=== PATIENT | male | born 1935 | race Caucasian/White ===

== ENCOUNTER → 2016-09-09 | Outpatient (CLI) | payer MEDICARE ==
[2016-09-09 11:14] LABS: ALT 45 U/L (21-72); AST 39 U/L (17-59); Alkaline Phosphatase 68 U/L (38-126); Anion Gap 11 mmol/L; Blood Urea Nitrogen 22 mg/dL (9-20); Calcium 9.8 mg/dL (8.4-10.2); Carbon Dioxide 29 mmol/L (22-30); Chloride 104 mmol/L (98-107); Cholesterol 152 mg/dL (<200); Glucose 115 mg/dL (74-99); HDL Cholesterol 40 mg/dL (40-60); Non-African American GFR(MDRD) >60 (>60 ml/min/1.73 sqM); Potassium 3.8 mmol/L (3.5-5.1); Sodium 144 mmol/L (137-145); Total Protein 6.9 g/dL (6.3-8.2); Triglycerides 123 mg/dL (<150)
[2016-09-09 11:29] LABS: Basophils % (A) 1 %; CH 33.1; CHCM 35.6; Eosinophils # (A) 0.3 k/uL (0-0.7); Eosinophils % (A) 4 %; HDW 3.19; HGB 16.6 gm/dL (13.0-17.5); Luc # (Auto) 0.26; Luc % (Auto) 4; Lymphocytes # (A) 1.9 k/uL (1.0-4.8); Lymphocytes % (A) 29 %; MCH 32.3 pg (25.0-35.0); MCHC 34.6 g/dL (31.0-37.0); MCV 93.4 fL (80.0-100.0); Mean Platelet Volume 7.1; Monocytes # (A) 0.4 k/uL (0-1.0); Monocytes % (A) 6 %; Neutrophils # (A) 3.6 k/uL (1.3-7.7); Neutrophils % (A) 56 %; RBC 5.14 m/uL (4.30-5.90); RDW 14.8 % (11.5-15.5); WBC 6.5 k/uL (3.8-10.6); WBC (Perox) 6.52
[2016-09-09 11:43] LABS: Prostate Specific Antigen <0.06 ng/mL (0.00-4.00)
== END ==
LOC: LABWHC1 10:34
PROVIDERS: ATTEND Internal Medicine
DX: C61 Malignant neoplasm of prostate (principal); E78.5 Hyperlipidemia, unspecified; I10 Essential (primary) hypertension
CPT/HCPCS: 36415; 80053; 80061; 84153; 84439; 84443; 85025

== ENCOUNTER → 2017-02-24 | Outpatient (CLI) | payer MEDICARE ==
[2017-02-24 13:06] LABS: Basophils # (A) 0.1 k/uL (0-0.2); Basophils % (A) 1 %; CH 33.2; CHCM 35.5; Eosinophils # (A) 0.4 k/uL (0-0.7); Eosinophils % (A) 4 %; HDW 2.98; HGB 16.9 gm/dL (13.0-17.5); Luc # (Auto) 0.32; Luc % (Auto) 3; Lymphocytes % (A) 19 %; MCHC 35.1 g/dL (31.0-37.0); MCV 93.8 fL (80.0-100.0); Mean Platelet Volume 7.5; Monocytes # (A) 0.8 k/uL (0-1.0); Monocytes % (A) 8 %; Neutrophils % (A) 66 %; RBC 5.12 m/uL (4.30-5.90); WBC 10.6 k/uL (3.8-10.6); WBC (Perox) 11.02
[2017-02-24 13:29] LABS: Anion Gap 11 mmol/L; Blood Urea Nitrogen 19 mg/dL (9-20); Calcium 9.7 mg/dL (8.4-10.2); Carbon Dioxide 32 mmol/L (22-30); Chloride 96 mmol/L (98-107); Glucose 91 mg/dL (74-99); Non-African American GFR(MDRD) 58 (>60 ml/min/1.73 sqM); Potassium 3.4 mmol/L (3.5-5.1); Sodium 139 mmol/L (137-145)
== END | disposition home or self-care (01) ==
LOC: LABWHC1 12:26
PROVIDERS: ATTEND Internal Medicine
DX: N19 Unspecified kidney failure (principal)
CPT/HCPCS: 36415; 80048; 85025

== ENCOUNTER 2017-06-20 10:59 | Day surgery (SDC) | payer MEDICARE ==
[2017-06-19 10:04] VITALS: BMI 28.8
[~2017-06-20 10:59] MED LIST: ALBUTEROL NEB (CONC) 2.5 MG/0.5 ML INHALATION ONE; LACTATED RINGERS 1,000 ML IV ONE; LACTATED RINGERS 1,000 ML IV SCH; LIDOCAINE 1% 20 ML VIAL (10MG/ML) FOR IV START INTRADERMA PRN; LIDOCAINE 2% (PF) 20 MG/ML 2 ML AMP INHALATION ONE; Pre Op ABX Message 1 EACH MISC MISCELLANE ONE
[2017-06-20 11:29] VITALS: RESP 16; TEMP 97.4
[2017-06-20] MEDS ORDERED: PROPOFOL 10 MG/ML 20 ML VIAL IV ONE (12:06)
[2017-06-20] MEDS ORDERED: KETAMINE 10 MG/ML 20 ML VIAL ONE (12:06)
[2017-06-20] MEDS ORDERED: GLYCOPYRROLATE 0.2 MG/ML 2 ML VIAL ONE (12:06)
[2017-06-20] MEDS ORDERED: LIDOCAINE 2% INJ 20 MG/ML INTRATRACH ONE (12:21)
[2017-06-20 13:42] VITALS: BP 115/82; PULSE 65
--- NOTE | 2017-06-20 13:56 | PCN ---
PROCEDURE NOTE OPERATIVE REPORT: Bronchoscopy, brushings and endobronchial biopsies of the tumor at the anterior wall of the right upper lobe bronchus. PREOPERATIVE DIAGNOSIS: Chronic cough. 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 ANESTHESIA: IV conscious sedation. DESCRIPTION OF PROCEDURE: The patient was prepared according to the bronchoscopy protocol. O2 was applied via Ventimask. The patient was monitored with a pulse oximetry, cardiac rhythm was also monitored continuously, blood pressure was intermittently monitored. After adequate IV conscious sedation, a few mL of lidocaine were instilled into the right naris, and the bronchoscope was advanced through the right naris down to the area of the vocal cords, which were noted to be patent. Significant purulent secretions were noted around the area of the vocal cords. The drainage from the sinuses. Then lidocaine was applied over the vocal cords, the bronchoscope was advanced further down to the trachea. Thorough examination was done of the trachea, emiliano, right upper lobe, right middle lobe, right lower lobe, left upper lobe lingula and left lower lobe. There was evidence of significant bronchial erythema and swelling noted. However, as I entered the right upper lobe bronchus, there was clearly a vesicular tumor measuring about 1.0 cm in size at the anterior wall of the right upper lobe bronchus. Multiple biopsies, brushings, washings were done from that area specifically, and after by the end of the procedure, the whole tumor seems to have evaporated almost with some vesicular lesions noted on the anterior wall of the right upper lobe bronchus. Biopsies were sent for different studies. Pictures before the biopsies were done and pictures after the biopsies were done to document the lesion and document resolution of the lesion after the biopsies were done. The procedure was well tolerated, no evidence of any immediate complications. BLOOD LOSS: Was negligible. MMODL / IJN: [id number] /
[2017-06-20 17:22] LABS: Appearance,BF Bloody; Color,BF Red; Nucleated Cells, Body Fluid 650 /uL; RBC, Body Fluid 160000 /uL
[2017-06-20 17:29] LABS: Mononuclear WBC,Body Fluid 35 %; Polynuclear WBC,Body Fluid 63 %; Total Cells Counted,Body Fluid 100
== END 2017-06-20 14:19 | disposition home or self-care (01) ==
LOC: ORWHC2ENDO 10:59
PROVIDERS: ATTEND Internal Medicine
DX: J98.4 Other disorders of lung (principal); R05 Cough; C90.00 Multiple myeloma not having achieved remission; I34.1 Nonrheumatic mitral (valve) prolapse; R00.2 Palpitations; M10.9 Gout, unspecified; Z85.46 Personal history of malignant neoplasm of prostate; Z79.82 Long term (current) use of aspirin; Z79.899 Other long term (current) drug therapy; Z88.5 Allergy status to narcotic agent
CPT/HCPCS: 94640; 87798 ×3; 87496; 87498; 87529; 88104; 88108; 88305; 89050; 87252; 87502; 87634; 87070; 87205; 87116; 87102; 87206; 31625; 31623; J2001 ×2; J2704; 31624; 31645

== ENCOUNTER 2017-07-12 12:05 | Day surgery (SDC) | payer MEDICARE ==
[2017-07-11 09:00] VITALS: BMI 29.2
[~2017-07-12 12:05] MED LIST changes: +DEXAMETHASONE SOD PHOSPHATE 10 MG/ML 1 ML VIAL IV ONE; +HYDROmorphone 0.5 MG/0.5 ML SYRINGE IVP PRN; -LIDOCAINE 1% 20 ML VIAL (10MG/ML) FOR IV START INTRADERMA PRN; +ONDANSETRON 4 MG/2 ML VIAL IVP ONE; -Pre Op ABX Message 1 EACH MISC MISCELLANE ONE
[2017-07-12 12:40] VITALS: TEMP 97
[2017-07-12 12:41] LABS: Glucose,Whole Blood 99 mg/dL (75-99)
[2017-07-12] MEDS ORDERED: LIDOCAINE 1% 20 ML VIAL (10MG/ML) FOR IV START INTRADERMA ONE (12:44)
[2017-07-12] MEDS ORDERED: PROPOFOL 10 MG/ML 20 ML VIAL IV ONE (13:10)
[2017-07-12] MEDS ORDERED: MIDAZOLAM 2 MG/2 ML VIAL ONE (13:10)
[2017-07-12] MEDS ORDERED: LIDOCAINE 1% INJ 10MG/ML (20 ML MDV) ONE (13:10)
[2017-07-12] MEDS ORDERED: LIDOCAINE 2% INJ 20 MG/ML INTRATRACH ONE (13:18)
[2017-07-12 14:06] VITALS: BP 106/77; PULSE 65; RESP 20
--- NOTE | 2017-07-12 14:12 | OP ---
OPERATIVE REPORT PROCEDURE: Bronchoscopy and brushings of a right upper lobe. A cystic tumor in the right upper lobe bronchus. PREOPERATIVE DIAGNOSIS: History of a cystic tumor involving the right upper lobe bronchus seen on previous bronchoscopy. POSTOPERATIVE DIAGNOSIS: Residual mucosal findings noted from a previous cystic tumor in the right upper lobe bronchus, the tumor has resolved. ANESTHESIA: IV conscious sedation. Please refer to [employer] documentation. PROCEDURE DESCRIPTION: Patient was placed in a supine position, he was already prepared as PER bronchoscopy protocol. O2 was applied via nasal cannula, and we monitored his O2 saturation continuously with pulse oximetry. Blood pressure was intermittently monitored, and cardiac rhythm was also monitored continuously. After adequate IV conscious sedation, a few mL of lidocaine were instilled into the left naris, and the bronchoscope was advanced through the left nares, down to the area of the vocal cords. Vocal cords were patent. Lidocaine was applied over the vocal cords, and the bronchoscope was advanced further down to the trachea. A thorough examination was done of the trachea, emiliano, right upper lobe, right middle lobe, right lower lobe, left upper lobe, lingula, and left lower lobe. Specific attention was given to the area of the right upper lobe bronchus where there was a history of a cystic lesion previously and the previous biopsies were nondiagnostic showing mostly atypical cells and metaplasia. The area in question was evaluated again today, and I did brushings of the area itself, there is hardly any residual tumor noted in the area, specifically, there was some mucosal changes consistent with inflammatory changes, but no evidence of tumor specifically in that location. Again two brushes were done from that specific area, and this is the anterior aspect of the right upper lobe bronchus at takeoff. Procedure was well tolerated, no evidence of any immediate complications, and no bleeding was noted. MMODL / IJN: [id number] /
== END 2017-07-12 14:26 | disposition home or self-care (01) ==
LOC: ORWHC2ENDO 12:05
PROVIDERS: ATTEND Internal Medicine
DX: R84.6 Abnormal cytological findings in specimens from respiratory organs and thorax (principal); R05 Cough; I10 Essential (primary) hypertension; J30.2 Other seasonal allergic rhinitis; K21.9 Gastro-esophageal reflux disease without esophagitis; M10.9 Gout, unspecified; C90.00 Multiple myeloma not having achieved remission; I25.10 Atherosclerotic heart disease of native coronary artery without angina pectoris; Z85.46 Personal history of malignant neoplasm of prostate; Z79.82 Long term (current) use of aspirin; Z79.899 Other long term (current) drug therapy; Z88.5 Allergy status to narcotic agent
CPT/HCPCS: 31623; 94640; 88104; 88305; J2001 ×3; J2250; J2704

== ENCOUNTER → 2017-08-15 | Outpatient (CLI) | payer MEDICARE ==
--- NOTE | 2017-08-15 14:44 | CT ---
EXAMINATION TYPE: CT chest wo con DATE OF EXAM: 08/15/2017 COMPARISON: Chest x-ray 06/30/2017, CT chest 08/30/2013 HISTORY: Cough CT DLP: 952.6 mGycm. Automated Exposure Control for Dose Reduction was Utilized. TECHNIQUE: CT scan of the thorax is performed without IV contrast. Limited scanning performed throug h the chest in supine and prone positions without contrast with high-resolution algorithm FINDINGS: LUNGS: The lungs are remarkable for some minimal subpleural lines, some probable scarring present in the left lower lobe, there is no concerning parenchymal mass or nodule identified. There is no pleu ral effusion or pneumothorax seen. The tracheobronchial tree is patent. MEDIASTINUM: Lack of IV contrast is noted to limit evaluation for mediastinal and especially hilar ad enopathy. There are no definitive greater than 1 cm hilar or mediastinal lymph nodes. There are coron maria luisa artery calcifications present. No cardiomegaly or pericardial effusion is seen. Proximal ascend ing portion of the aorta measures approximately 4.4 cm. OTHER: Multiple punched-out bone lesions are present throughout the visualized skeleton. Dense lines in the upper abdomen may be due to vascular calcifications. IMPRESSION: Correlate for multiple myeloma, metastatic disease. Coronary artery disease. Ascending ao rtic aneurysm.
== END | disposition home or self-care (01) ==
LOC: RADCTMAIN 13:28
PROVIDERS: ATTEND Internal Medicine
DX: I25.10 Atherosclerotic heart disease of native coronary artery without angina pectoris (principal); I71.2 Thoracic aortic aneurysm, without rupture; Z88.5 Allergy status to narcotic agent
CPT/HCPCS: 71250

== ENCOUNTER → 2018-02-14 | Outpatient (CLI) | payer MEDICARE ==
[2018-02-14 11:15] LABS: Basophils # (A) 0.1 k/uL (0-0.2); Basophils % (A) 1 %; Eosinophils # (A) 0.3 k/uL (0-0.7); Eosinophils % (A) 5 %; HCT 47.8 % (39.0-53.0); HGB 16.3 gm/dL (13.0-17.5); Lymphocytes # (A) 1.9 k/uL (1.0-4.8); Lymphocytes % (A) 26 %; MCH 31.7 pg (25.0-35.0); MCHC 34.2 g/dL (31.0-37.0); MCV 92.9 fL (80.0-100.0); Mean Platelet Volume 7.3; Monocytes # (A) 0.5 k/uL (0-1.0); Monocytes % (A) 7 %; Neutrophils # (A) 4.3 k/uL (1.3-7.7); Neutrophils % (A) 58 %; Platelet Count 180 k/uL (150-450); RBC 5.14 m/uL (4.30-5.90); RDW 13.3 % (11.5-15.5); WBC 7.4 k/uL (3.8-10.6)
[2018-02-14 11:44] LABS: Calcium 9.4 mg/dL (8.4-10.2); Potassium 3.7 mmol/L (3.5-5.1); Total Bilirubin 1.3 mg/dL (0.2-1.3); Total Protein 6.5 g/dL (6.3-8.2)
[2018-02-14 11:55] LABS: T4, Free (Free Thyroxine) 1.02 ng/dL (0.78-2.19)
== END | disposition home or self-care (01) ==
LOC: LABWHC1 10:20
PROVIDERS: ATTEND Internal Medicine
DX: E78.5 Hyperlipidemia, unspecified (principal); I10 Essential (primary) hypertension
CPT/HCPCS: 36415; 80053; 80061; 84439; 84443; 85025

== ENCOUNTER → 2018-03-26 | Outpatient (CLI) | payer MEDICARE ==
[2018-03-26 17:45] LABS: Appearance,Urine Clear (Clear); Bilirubin,Urine Negative (Negative); Blood,Urine Negative (Negative); Color,Urine Yellow; Glucose,Urine (UA) Negative (Negative); Ketones,Urine Negative (Negative); Leukocyte Esterase,Urine Negative (Negative); Nitrite,Urine Negative (Negative); PH, Urine 6.5 (5.0-8.0); Protein,Urine Trace (Negative); Specific Gravity,Urine 1.024 (1.001-1.035); Urobilinogen,Urine <2.0 mg/dL (<2.0)
[2018-03-26 17:53] LABS: HCT 46.9 % (39.0-53.0); HGB 16.4 gm/dL (13.0-17.5); MCH 32.8 pg (25.0-35.0); MCHC 34.9 g/dL (31.0-37.0); MCV 93.8 fL (80.0-100.0); Mean Platelet Volume 7.2; Platelet Count 180 k/uL (150-450); RDW 13.5 % (11.5-15.5); WBC 6.9 k/uL (3.8-10.6)
[2018-03-26 18:00] LABS: INR 1.1 (<1.2); Partial Thromboplastin Time 22.8 sec (22.0-30.0); Prothrombin Time 10.5 sec (9.0-12.0)
[2018-03-26 18:08] LABS: Calcium 9.8 mg/dL (8.4-10.2); Potassium 3.7 mmol/L (3.5-5.1); Total Bilirubin 0.8 mg/dL (0.2-1.3); Total Protein 6.7 g/dL (6.3-8.2)
== END | disposition home or self-care (01) ==
LOC: LABPAT 17:00
PROVIDERS: ATTEND Orthopaedic Surgery
DX: Z01.812 Encounter for preprocedural laboratory examination (principal); Z79.01 Long term (current) use of anticoagulants
CPT/HCPCS: 36415; 80053; 81003; 85027; 85610; 85730; 87070

== ENCOUNTER 2018-04-17 13:13 | Inpatient (IN) | payer MEDICARE ==
[2018-04-10 12:01] VITALS: BMI 28.8
[~2018-04-17 13:13] MED LIST changes: +ACETAMINOPHEN TAB 500 MG TAB PO ONE; -ALBUTEROL NEB (CONC) 2.5 MG/0.5 ML INHALATION ONE; -DEXAMETHASONE SOD PHOSPHATE 10 MG/ML 1 ML VIAL IV ONE; -HYDROmorphone 0.5 MG/0.5 ML SYRINGE IVP PRN; -LACTATED RINGERS 1,000 ML IV ONE; -LACTATED RINGERS 1,000 ML IV SCH; +LIDOCAINE 1% 20 ML VIAL (10MG/ML) FOR IV START INTRADERMA PRN; -LIDOCAINE 2% (PF) 20 MG/ML 2 ML AMP INHALATION ONE; +MELOXICAM 7.5 MG TAB PO ONE; +MIDAZOLAM 2 MG/2 ML VIAL IV PRN; -ONDANSETRON 4 MG/2 ML VIAL IVP ONE; +ROPIVACAINE 246.25 MG, EPINEPHrine 0.5 MG, KETOROLAC 30 MG, cloNIDine HCL/PF 80 MCG, WA... MISCELLANE ONE; +TRANEXAMIC ACID 1,000 MG in SODIUM CHLORIDE 0.9% 50 ML IVPB ONE; +ceFAZolin IN SWFI 2 GM/20 ML SYRINGE IVP ONE; +fentaNYL (PF) 50 MCG/ML 2 ML AMP IV PRN
[2018-04-17] MEDS: LACTATED RINGERS 1,000 ML IV SCH ×2 (13:39→19:49)
[2018-04-17] MEDS ORDERED: ONDANSETRON 4 MG/2 ML VIAL IVP ONE (13:53)
--- NOTE | 2018-04-17 14:28 | P.ONQ ---
Anesthesiology Proc Note - PNB - Peripheral Nerve Block Performed Right Adductor Canal Infusion Time Out Performed: Yes Procedure Start Time: 14:20 Procedure Stop Time: 14:30 Indication: Acute Post-Operative Pain, Analgesia, Requested by physician Sedation Type: Sedate with meaningful contact maintained Preparation: Sterile Dressing Position: Supine Catheter: Indwelling Needle Types: On-Q Needle Size: 100mm (4") Needle Gauge: 20 Technique: Ultrasound Injectate: 0.5% Ropivacaine (see comment for volume) Narrative: Image copied to patient's chart Blood Aspirated: No Pain Paresthesia on Injection Noted: No Resistance on Injection: Normal Events: Uneventful and Well Tolerated (Ropivacaine 0.5% 20 ml injected into adductor canal with adequate spread)
[2018-04-17] MEDS ORDERED: DIAZEPAM 5 MG TAB PO PRN (16:48)
[2018-04-17] MEDS ORDERED: NALOXONE 0.4 MG/ML 1 ML VIAL IV PRN (16:48)
[2018-04-17] MEDS ORDERED: BISACODYL 10 MG SUPP RECTAL PRN (16:48)
[2018-04-17] MEDS ORDERED: MAGNESIUM HYDROXIDE 2,400 MG/10 ML CUP PO PRN (16:48)
[2018-04-17] MEDS ORDERED: HYDROmorphone 1 MG/ML 1 ML SYRINGE IVP PRN ×3 (16:48)
[2018-04-17] MEDS ORDERED: HYDROcodone/APAP 5-325MG 1 EACH TAB PO PRN ×2 (16:48)
[2018-04-17] MEDS ORDERED: hydrOXYzine PAMOATE 25 MG CAP PO PRN (16:48)
[2018-04-17] MEDS ORDERED: NA PHOS,M-B/NA PHOS,DI-BA 133 ML ENEMA RECTAL PRN (16:48)
[2018-04-17] MEDS ORDERED: SODIUM CHLORIDE 0.9% 100 ML BAG ONE (17:01)
[2018-04-17] MEDS ORDERED: PROPOFOL 10 MG/ML 20 ML VIAL IV ONE (17:01)
[2018-04-17] MEDS ORDERED: fentaNYL (PF) 50 MCG/ML 2 ML AMP ONE (17:01)
[2018-04-17] MEDS ORDERED: ePHEDrine SULFATE/0.9% NACL/PF 50 MG/5 ML SYRINGE IV ONE (17:01)
[2018-04-17] MEDS ORDERED: TRANEXAMIC ACID 1,000 MG/10 ML VIAL ONE (17:01)
[2018-04-17] MEDS ORDERED: MIDAZOLAM 2 MG/2 ML VIAL ONE (17:01)
[2018-04-17] MEDS ORDERED: ceFAZolin 3,000 MG in SODIUM CHLORIDE 0.9% IRRIGATIO 3,000 ML IRRIGATION ONE (17:21)
[2018-04-17] MEDS ORDERED: LACTATED RINGERS 1,000 ML IV ONE ×2 (17:42)
--- NOTE | 2018-04-17 18:08 | P.OP ---
Date of Procedure: 04/17/18 Preoperative Diagnosis: Severe osteoarthritis right knee Postoperative Diagnosis: Severe osteoarthritis right knee Procedure(s) Performed: Right total knee arthroplasty Implants: Soliman [employer] Nephew Journey II CR Oxinium cruciate retaining femoral component size 8, right Sol[employer] Journey right nonporous tibial baseplate size 7 Soliman [employer]hew Journey II, XLPE CR articular insert, size 9 mm, Size 7-8 right Sol[employer] Journey BCS resurfacing round patellar component, 35 mm All components were cemented using [place]os R bone cement.. The articulation is Oxinium on polyethylene. Anesthesia: spinal Surgeon: Chris Morley Boom Cat Operator #1: Leora Hemphill Estimated Blood Loss (ml): 50 Pathology: other (Bone and cartilage) Condition: stable Disposition: PACU Indications for Procedure: After failure of conservative treatment we discussed the surgical and nonsurgical treatment options at length. Patient wishes to proceed with a total knee arthroplasty. Complications specific to this procedure were discussed at length, including but not limited to infection, bleeding, stiffness , and nerve injury. Patient is aware of all these complications and informed consent was obtained the operative findings are consistent with severe osteoarthritis of the right knee Operative Findings: The operative findings are consistent with severe osteoarthritis of the right knee Description of Procedure: Patient was seen in the preoperative area consent was reviewed and operative site was marked with a skin marker. An adductor canal pain catheter was placed by anesthesia in the preoperative area. Patient was then brought to the operating room and given preoperative antibiotics intravenously. A spinal anesthetic was administered by the anesthesia department. A tourniquet was placed on the upper thigh and the lower extremity was prepped and draped in usual sterile fashion. A gram of transexamic acid was given. A universal timeout was then performed which confirmed the patient's name, surgical site, ALLERGIES, and consent. The lower extremity was then exsanguinated and tourniquet was inflated to 250 mmHg. A standard and anterior midline approach to the knee was performed. The skin and subcutaneous tissue was dissected down to the patellar tendon. A medial parapatellar arthrotomy was then performed. The knee was then extended, the patellar was everted, and the knee was again flexed. Anterior horns of both menisci were excised, and a release was performed to the posterior medial aspect of the knee. On gross visual inspection, there was complete loss of articular cartilage in the medial and patellofemoral joint spaces. There was also significant cartilage damage in the lateral compartment. There were multiple periarticular osteophytes which were then removed with a Ronguer. The femoral canal was then opened with the appropriate drill, and the intramedullary femoral cutting guide was then placed and set for 5 of valgus. The distal femoral cutting block was then pinned in place, and the distal femur was then cut. The cutting block was then removed and the cut was checked for flatness. Next, the sizing guide was then placed and set for 3 external rotation based off of the epicondylar axis and Whitesides line. After the femur was sized, the appropriate 4-in-1 cutting block was then pinned in place. The anterior condyles were cut without notching. The posterior and chamfer cuts were performed while protecting the collateral ligaments. The cutting block was then removed, and the femoral canal was plugged with autologous bone. Attention was then directed to the tibia. The remaining ACL was removed with a Ronguer, and the tibia was then gently subluxed forward with a large bent knee retractor. Any remaining menisci was excised. The posterior lateral corner was cauterized in order to cauterize the lateral geniculate artery. The extra medullary tibial cutting guide was then placed, set for the appropriate rotation , slope, and depth of resection. The proximal tibia cutting guide was then pinned in place. Proximal tibia was then cut and sized. Next trials were then placed with the appropriate-sized insert. The knee was able to fully extend and flex to 130 and was stable throughout all range of motion. The knee was then extended, patella everted. Patella was then measured, and then using an osteotomy guide, the patella was cut at the appropriate level. The patella was then measured and drilled and the patella trial was then placed. The knee was then taken through range of motion with the patella trial and the patella tracked normally. The knee was then extended patella trial was then removed and the patella was everted. Knee was then flexed and lug holes were drilled through the femoral trial and the femoral trial was then removed. The tibial was then exposed, and the tibial broach guide was then pinned in place after it was set for the appropriate rotation to allow for the most coverage without overhang. The tibia was then reamed and broached. The cut surfaces of bone were then irrigated with pulsatile lavage. The posterior structures were injected with the ropivacaine solution. The knee was also irrigated with Irrisept solution. The components were then opened, the cement was mixed, and the components were then cemented in place. The cement was allowed to harden with the knee in full extension. While the cement was hardening, the remaining soft tissues were then injected with a ropivacaine solution, which consisted of 246.25 mg of ropivacaine, 0.5 mg of epinephrine, 30 mg of Toradol, 80 g of clonidine, and 48.45 mL of sterile water, for a total of 100 mL of fluid injected. After the cemented hardened. The tourniquet was released, and hemostasis was obtained. A second gram of transexamic acid was given. The knee was again irrigated. The knee was again taken through range of motion and found to be stable throughout all range of motion of 0-130 , and the patella tracked normally. The fascia was then closed with #2 strata fix suture. The subcutaneous tissue was closed with 3-0 Vicryl and 3-0 strata fix. Dermabond glue was used for the skin and placed with the knee in flexion. The patient was placed in a sterile silver dressing. Patient was then transferred to recovery room in stable condition. The household assistant DAMIEN Bassett was required due the complexity surgery and the need for a skilled surgical dressing maker. She assisted in positioning, draping, retraction, and closure of the wound.
[2018-04-17] MEDS ORDERED: ROPIVACAINE 1,100 MG, SODIUM CHLORIDE 0.9% 500 ML 330 ML MISCELLANE PRN ×2 (18:56)
--- NOTE | 2018-04-17 19:35 | XR ---
PROCEDURE: XR knee limited RT 2 views DATE AND TIME: 04/17/2018 7:10 PM CLINICAL INDICATION: PHH Evaluation for Postop abnormality and alignment TECHNIQUE: Portable AP and crosstable lateral postoperative views COMPARISON: None FINDINGS: TKR is well seated with anatomic positioning and alignment noted. There are no unexpected postoperative findings. IMPRESSION: Postoperative.
[2018-04-17] MEDS: SODIUM CHLORIDE 0.9% 1,000 ML IV SCH (19:50)
[2018-04-17] MEDS ORDERED: SENNOSIDES-DOCUSATE SODIUM 1 EACH TAB PO SCH (21:00)
[2018-04-17] MEDS ORDERED: ALLOPURINOL 300 MG TAB PO SCH (21:15)
[2018-04-17] MEDS ORDERED: ATORVASTATIN 40 MG TAB PO SCH (21:15)
[2018-04-17] MEDS ORDERED: MONTELUKAST 10 MG TAB PO SCH (21:15)
[2018-04-17] MEDS: ASPIRIN 325 MG TAB PO SCH (21:55)
[2018-04-18] MEDS: ceFAZolin IN SWFI 2 GM/20 ML SYRINGE IVP SCH ×2 (00:02→08:09)
--- NOTE | 2018-04-18 07:08 | P.PN ---
Progress Note - Text Progress Note Date: 04/18/18 The patient is status post 1 adductor canal catheter placement. The catheter was placed for postoperative pain control, status post total Right Knee arthroplasty. Ropivacaine 0.2% is infusing at 5 mLs per hour. The patient has no complaints of right lower extremity numbness or weakness. Patient's VAS score is2 -10. Assessment: Patient's adductor canal catheter is in place and working appropriately. Plan: continue infusion and adjust it as needed.
[2018-04-18] MEDS ORDERED: PANTOPRAZOLE 40 MG TABLET PO SCH (07:30)
[2018-04-18 07:41] VITALS: BP 114/68; PULSE 66; RESP 16; TEMP 98
[2018-04-18 07:46] LABS: Basophils % (A) 1 %; Eosinophils # (A) 0.2 k/uL (0-0.7); Eosinophils % (A) 3 %; HCT 40.3 % (39.0-53.0); HGB 13.7 gm/dL (13.0-17.5); Lymphocytes # (A) 1.4 k/uL (1.0-4.8); Lymphocytes % (A) 17 %; MCH 31.9 pg (25.0-35.0); MCHC 34.2 g/dL (31.0-37.0); MCV 93.5 fL (80.0-100.0); Mean Platelet Volume 7.2; Monocytes # (A) 0.5 k/uL (0-1.0); Monocytes % (A) 6 %; Neutrophils # (A) 5.6 k/uL (1.3-7.7); Neutrophils % (A) 71 %; Platelet Count 151 k/uL (150-450); RBC 4.31 m/uL (4.30-5.90); RDW 13.8 % (11.5-15.5); WBC 7.9 k/uL (3.8-10.6)
[2018-04-18] MEDS: ASPIRIN 325 MG TAB PO SCH (08:09)
[2018-04-18] MEDS ORDERED: MELOXICAM 7.5 MG TAB PO SCH (09:00)
[2018-04-18] MEDS ORDERED: ATENOLOL 50 MG TAB PO SCH (09:00)
[2018-04-18] MEDS ORDERED: CHLORTHALIDONE 25 MG TAB PO SCH (09:00)
[2018-04-18] MEDS: SODIUM CHLORIDE 0.9% 1,000 ML IV SCH (09:13)
--- NOTE | 2018-04-18 09:23 | P.DS ---
Providers Date of admission: 04/17/18 13:13 Expected date of discharge: 04/18/18 Attending physician: Chris Morley Consults: 04/17/18 16:48 Consult Physician Routine Consulting Provider: Mari Tarango Consult Reason/Comments: medical management Do you want consulting provider notified?: Yes Primary care physician: Mari Traango - Discharge Diagnosis(es) (1) Primary osteoarthritis of right knee Current Visit: Yes Status: Acute (2) S/P total knee arthroplasty Current Visit: Yes Status: Acute Hospital Course: This is a 82-year-old male with known history of degenerative arthritis of the right knee. The patient presents for evaluation. After discussion and consideration patient elects to proceed with total knee arthroplasty. The patient is seen preoperatively by Dr. Morley and medically cleared for surgery by their primary care physician. Patient is admitted to [facility] on 04/17/2018 for total knee arthroplasty. The procedures performed without complication or sequelae. The patient is doing well postoperatively. Labs and vital signs are stable on day of discharge. On day of discharge patient's knee incision is healing well. There is minimal erythema. There is no drainage noted at this time. There is minimal soft tissue swelling to the knee. Patient has full foot and ankle motion without difficulty or pain. Neurovascular status to the right lower extremity is intact. Patient is discharged home in good condition. Please see med rec for accurate list of home medications. Plan - Discharge Summary Discharge Rx Participant: Yes New Discharge Prescriptions: New Aspirin 325 mg PO BID #60 tab HYDROcodone/APAP 5-325MG [Mass[place] 5-325] 1 - 2 tab PO Q4-6H PRN #84 tab PRN Reason: Pain Sennosides [Senokot] 1 tab PO BID #60 tablet No Action [place] Oil/Orange-3 Fatty Acids [Fish Oil 500 mg Softgel] 1 cap PO HS Pantoprazole Sodium [Protonix] 40 mg PO QAM Cetirizine HCl [Zyrtec] 10 mg PO QAM PRN PRN Reason: Allergy Symptoms Aspirin 162 tab PO HS Multivitamin [Men's Multi-Vitamin] 1 tab PO HS Atenolol/Chlorthalidone [Atenolol-Chlorthalidone 50-25] 1 tab PO DAILY Allopurinol [Zyloprim] 300 mg PO HS Acetaminophen [Tylenol Extra Strength] 500 - 1,000 mg PO Q6H PRN PRN Reason: Pain Atorvastatin [Lipitor] 40 mg PO HS Acetaminophen [Tylenol Arthritis] 1,300 mg PO Q8H PRN PRN Reason: Pain Montelukast Sodium [Singulair] 10 mg PO HS Discharge Medication List Aspirin 162 tab PO HS 10/10/13 [History] Cetirizine HCl [Zyrtec] 10 mg PO QAM PRN 10/10/13 [History] Multivitamin [Men's Multi-Vitamin] 1 tab PO HS 10/10/13 [History] Pantoprazole Sodium [Protonix] 40 mg PO QAM 10/10/13 [History] [place] Oil/Orange-3 Fatty Acids [Fish Oil 500 mg Softgel] 1 cap PO HS 10/10/13 [ History] Atenolol/Chlorthalidone [Atenolol-Chlorthalidone 50-25] 1 tab PO DAILY 12/29/14 [History] Allopurinol [Zyloprim] 300 mg PO HS 06/19/17 [History] Acetaminophen [Tylenol Arthritis] 1,300 mg PO Q8H PRN 04/10/18 [History] Acetaminophen [Tylenol Extra Strength] 500 - 1,000 mg PO Q6H PRN 04/10/18 [ History] Atorvastatin [Lipitor] 40 mg PO HS 04/10/18 [History] Montelukast Sodium [Singulair] 10 mg PO HS 04/10/18 [History] Aspirin 325 mg PO BID #60 tab 04/18/18 [Rx] HYDROcodone/APAP 5-325MG [[place] 5-325] 1 - 2 tab PO Q4-6H PRN #84 tab 04/18/18 [ Rx] Sennosides [Senokot] 1 tab PO BID #60 tablet 04/18/18 [Rx] Follow up Appointment(s)/Referral(s): Chris Morley DO [Doctor of Osteopathic Medicine] - 2 Weeks Ambulatory/Diagnostic Orders: Continuous Passive Motion (CPM) Machine [DME.AMB1] Time Frame: 3 Weeks, Location : None Selected Activity/Diet/Wound Care/Special Instructions: Weightbearing as tolerated with a walker. CPM 5-6h daily. Leave dressing intact. May be removed by home care nurse in 10 days. May shower with dressing on. Please call [facility] with any questions or concerns, . Discharge Disposition: HOME WITH HOME HEALTH SERVICES
--- NOTE | 2018-04-18 13:15 | P.CNPUL ---
History of Present Illness Consult date: 04/18/18 Requesting physician: Chris Morley Reason for consult: other Chief complaint: Severe osteoarthritis of the right knee status post right total knee arthro History of present illness: This is a 82-year-old white male patient of Dr. Tarango, who presented on 2017 for an elective right total knee arthroplasty for severe osteoarthritis of the right knee. Tolerated procedure well, this morning he was up ambulating, he states his pain is under good control, denies any specific complaints, no shortness of breath or chest pain. Patient has a past medical history is significant for hypertension, prostate cancer, cataracts, monoclonal gammopathy. She is a lifetime nonsmoker, he does not consume alcohol. Today's blood work has been reviewed, WBC 7.9, hemoglobin is 13.7, platelet count is 151. No chemistry was done. Vital signs are stable, room air pulse ox is 93%, patient is afebrile, hemodynamics stable. Patient's pain is being managed by oral [place] as, and Dilaudid for breakthrough pain. Pain is under control. He is doing well, and anticipated to be discharged home today. Review of Systems All systems: negative Constitutional: Denies chills, Denies fever Eyes: denies blurred vision, denies pain Ears, nose, mouth and throat: Denies headache, Denies sore throat Cardiovascular: Denies chest pain, Denies shortness of breath Respiratory: Denies cough Gastrointestinal: Denies abdominal pain, Denies diarrhea, Denies nausea, Denies vomiting Musculoskeletal: Denies myalgias Musculoskeletal: right: knee pain Integumentary: Denies pruritus, Denies rash Neurological: Denies numbness, Denies weakness Psychiatric: Denies anxiety, Denies depression Endocrine: Denies fatigue, Denies weight change Past Medical History Past Medical History: Asthma, Blood Disorder, Cancer, GERD/Reflux, Hypertension , Mitral Valve Prolapse (MVP), Osteoarthritis (OA), Renal Disease Additional Past Medical History / Comment(s): MINOR MVP. THORACIC AORTIC ANEURYSM. ALLERGIC ASTHMA. GOUT. HX PROSTATE CANCER. HX PALPITATIONS 1997. BLOOD DISORDER - MONOCLONAL GAMMOPATHY, OR ABN PROTEIN IN BLOOD, MULTIPLE MYELOMA INACTIVE. KIDNEY DISEASE STAGE 2. History of Any Multi-Drug Resistant Organisms: None Reported Past Surgical History: Heart Catheterization, Hernia Repair, Orthopedic Surgery , Prostate Surgery Additional Past Surgical History / Comment(s): BENIGN TUMORS EXC ANKLE. PRE-CA LESION REMOVED. PARTIAL AMPUTATION OF 3RD TOE RT FOOT. CATARACTS MANJEET. GANGLION CYST EXC LT KNEE. LT ING & UMB HERNIA. DENTAL IMPLANTS (1)TOP, (2) BOTTOM. ROBOTIC PROSTATECTOMY 2009@ [facility] HOSP. COLONOSCOPY. BRONCHOSCOPY 06/2017. CIRCUMCISION 2017. Past Anesthesia/Blood Transfusion Reactions: No Reported Reaction, Family History of Problems w/ Anesthesia Additional Past Anesthesia/Blood Transfusion Reaction / Comment(s): NAUSEA Past Psychological History: No Psychological Hx Reported Smoking Status: Never smoker Past Alcohol Use History: Rare Past Drug Use History: None Reported - Past Family History Mother Family Medical History: Cancer Brother(s) Family Medical History: Cancer Additional Family Medical History / Comment(s): PROSTATE Sister(s) Family Medical History: Cancer Additional Family Medical History / Comment(s): 1 W/ LUNG CA, 1 W/ THROAT CA Medications and Allergies Home Medications Medication Instructions Recorded Confirmed Type Aspirin 162 tab PO HS 10/10/13 04/17/18 History Cetirizine HCl [Zyrtec] 10 mg PO QAM PRN 10/10/13 04/17/18 History Multivitamin [Men's Multi-Vitamin] 1 tab PO HS 10/10/13 04/17/18 History Pantoprazole Sodium [Protonix] 40 mg PO QAM 10/10/13 04/17/18 History [place] Oil/[place]-3 Fatty Acids 1 cap PO HS 10/10/13 04/17/18 History [Fish Oil 500 mg Softgel] Atenolol/Chlorthalidone 1 tab PO DAILY 12/29/14 04/17/18 History [Atenolol-Chlorthalidone 50-25] Allopurinol [Zyloprim] 300 mg PO HS 06/19/17 04/17/18 History Acetaminophen [Tylenol Arthritis] 1,300 mg PO Q8H PRN 04/10/18 04/17/18 History Acetaminophen [Tylenol Extra 500 - 1,000 mg PO Q6H PRN 04/10/18 04/17/18 History Strength] Atorvastatin [Lipitor] 40 mg PO HS 04/10/18 04/17/18 History Montelukast Sodium [Singulair] 10 mg PO HS 04/10/18 04/17/18 History Aspirin 325 mg PO BID #60 tab 04/18/18 Rx HYDROcodone/APAP 5-325MG [[place] 1 - 2 tab PO Q4-6H PRN #84 tab 04/18/18 Rx 5-325] Sennosides [Senokot] 1 tab PO BID #60 tablet 04/18/18 Rx Allergies Allergy/AdvReac Type Severity Reaction Status Date / Time meperidine HCl [From Demerol] Allergy SEVERE Verified 04/17/18 16:54 SWEATING, LOW BLOOD PRESSURE Physical Exam Vitals: Vital Signs Temp Pulse Pulse Resp BP Pulse Ox 04/18/18 07:00 98 F 66 16 114/68 93 L 04/18/18 00:01 17 04/17/18 23:00 97.4 F L 57 L 17 108/71 92 L 04/17/18 22:47 16 04/17/18 21:48 97.3 F L 61 113/75 90 L 04/17/18 19:30 67 16 108/62 100 04/17/18 19:15 62 16 109/61 100 04/17/18 19:00 54 L 16 100/65 95 04/17/18 18:40 97.1 F L 61 16 108/61 95 04/17/18 13:33 97.2 F L 65 16 163/91 96 Intake and Output 04/17/18 04/18/18 04/18/18 22:59 06:59 14:59 Intake Total 1381 Output Total 50 Balance 1331 Intake: IV 701 Intake, IV Titration 140 Amount Sodium Chloride 0.9% 1, 140 000 ml @ 70 mls/hr IV . [id number] [facility] Rx#:[id number] Oral 540 Output: Estimated Blood Loss 50 Other: Voiding Method Urinal Urinal # Voids 1 GENERAL EXAM: Alert, pleasant, 82-year-old white male comfortable in no apparent distress. HEAD: Normocephalic/atraumatic. EYES: Normal reaction of pupils, equal size. Conjunctiva pink, sclera white. NOSE: Clear with pink turbinates. THROAT: No erythema or exudates. NECK: No masses, no JVD, no thyroid enlargement, no adenopathy. CHEST: No chest wall deformity. Symmetrical expansion. LUNGS: Equal air entry with no crackles, wheeze, rhonchi or dullness. CVS: Regular rate and rhythm, normal S1 and S2, no gallops, no murmurs, no rubs ABDOMEN: Soft, nontender. No hepatosplenomegaly, normal bowel sounds, no guarding or rigidity. EXTREMITIES: No clubbing, no edema, no cyanosis, 2+ pulses and upper and lower extremities. MUSCULOSKELETAL: Muscle strength and tone normal. Right knee surgical dressing is clean dry and intact, distal pulses are intact, neuro vascular status intact SPINE: No scoliosis or deformity SKIN: No rashes CENTRAL NERVOUS SYSTEM: Alert and oriented -3. No focal deficits, tone is normal in all 4 extremities. PSYCHIATRIC: Alert and oriented -3. Appropriate affect. Intact judgment and insight. Results - Laboratory Findings CBC and BMP: 04/18/18 07:05 - Diagnostic Findings Additional studies: Right knee x-ray results reviewed Assessment and Plan Plan: Assessment: #1. Severe osteoarthritis of right knee, status post right total knee arthroplasty, post-op day 1 #2. History of hypertension #3. History of prostate cancer #4. Cataracts #5. Monoclonal gammopathy Plan: Continue encouraging deep breathing and coughing, ambulation, patient is doing well, no shortness of breath or chest pain, his pain is under good control, no specific complaints, no acute events overnight. Anticipate discharge home today follow-up with Dr. Tarango in the office in the next few days. I performed a history & physical examination of the patient and discussed their management with my nurse practitioner, Yecenia Sosa. I reviewed the nurse practitioner's note and agree with the documented findings and plan of care. Lung sounds are positive for clear breath sounds. The findings and the impression was discussed with the patient. I attest to the documentation by the nurse practitioner. Time with Patient: Greater than 30
[2018-04-18] MEDS ORDERED: ASPIRIN 81 MG PO SCH (21:00)
== END 2018-04-18 13:22 | disposition home health service (06) | DRG 470 ==
LOC: 2ORMAIN 13:13 → 4SSUR 19:02
PROVIDERS: ADMIT Orthopaedic Surgery; ATTEND Orthopaedic Surgery
PROC: 0SRC069 Replacement of Right Knee Joint with Oxidized Zirconium on Polyethylene Synthetic Substitute, Cemented, Open Approach (ICD-10-PCS; principal; 2018-04-17 16:00)
DX: M17.11 Unilateral primary osteoarthritis, right knee (principal); J45.909 Unspecified asthma, uncomplicated; I08.3 Combined rheumatic disorders of mitral, aortic and tricuspid valves; K21.9 Gastro-esophageal reflux disease without esophagitis; I12.9 Hypertensive chronic kidney disease with stage 1 through stage 4 chronic kidney disease, or unspecified chronic kidney disease; M10.9 Gout, unspecified; E78.5 Hyperlipidemia, unspecified; I25.10 Atherosclerotic heart disease of native coronary artery without angina pectoris; D47.2 Monoclonal gammopathy; N18.2 Chronic kidney disease, stage 2 (mild); Z98.42 Cataract extraction status, left eye; Z85.46 Personal history of malignant neoplasm of prostate; Z98.41 Cataract extraction status, right eye; Z79.82 Long term (current) use of aspirin; Z79.899 Other long term (current) drug therapy; Z88.5 Allergy status to narcotic agent; Z90.79 Acquired absence of other genital organ(s); Z80.42 Family history of malignant neoplasm of prostate; Z80.8 Family history of malignant neoplasm of other organs or systems; Z80.1 Family history of malignant neoplasm of trachea, bronchus and lung; Z85.79 Personal history of other malignant neoplasms of lymphoid, hematopoietic and related tissues
CPT/HCPCS: 85025; 88300

== ENCOUNTER → 2018-09-19 | Outpatient (CLI) | payer MEDICARE | END | disposition home or self-care (01) | LOC: LABWHC1 14:19 | PROVIDERS: ATTEND Urology | DX: C61 Malignant neoplasm of prostate (principal) | CPT/HCPCS: 36415; 84153 ==

== ENCOUNTER → 2019-03-04 | Outpatient (CLI) | payer MEDICARE ==
--- NOTE | 2019-03-04 17:17 | CT ---
EXAMINATION TYPE: CT chest wo con DATE OF EXAM: 03/04/2019 COMPARISON: 08/15/2017 HISTORY: Follow up thoracic aortic aneurysm. CT DLP: 476.9 mGycm, Automated exposure control for dose reduction was used. CONTRAST: Performed injected with 0 mL of Isovue 300. TECHNIQUE: Axial images were obtained at 5 mm thick sections. Reconstructed images are reviewed on [employer] computer in the coronal plane. FINDINGS: Portion of the thyroid visualized is normal. No suspicious lung nodules or focal infiltrates are present. Some minimal infiltrate is at the left b ase which can be related to some atelectasis. No suspicious consolidation. No enlarged mediastinal or hilar adenopathy is evident. The ascending aorta diameter at the level o f the main pulmonary artery is 4.2 cm. The main pulmonary artery diameter at the bifurcation is 2.7 cm. Coronary artery calcification is present. The ascending thoracic aorta measures smaller than the 2018 exam. No enlarging aneurysm is evident. Limited CT sections are obtained through the upper abdomen. Abdomen is essentially unremarkable. IMPRESSIONS: 1. Stable ascending thoracic aortic aneurysm currently measuring 4.2 cm in AP dimension. 2. Some minimal subsegmental atelectasis likely present at the left base.
== END | disposition home or self-care (01) ==
LOC: RADCTMAIN 13:06
PROVIDERS: ATTEND Internal Medicine
DX: I71.2 Thoracic aortic aneurysm, without rupture (principal); J98.11 Atelectasis; Z88.5 Allergy status to narcotic agent
CPT/HCPCS: 71250

== ENCOUNTER → 2019-07-11 | Outpatient (CLI) | payer MEDICARE | END | disposition home or self-care (01) | LOC: LABWHC1 09:44 | PROVIDERS: ATTEND Internal Medicine | DX: Z53.9 Procedure and treatment not carried out, unspecified reason (principal) ==

== ENCOUNTER → 2019-07-11 | Outpatient (CLI) | payer MEDICARE ==
[2019-07-11 10:29] LABS: Basophils % (A) 1 %; Eosinophils # (A) 0.2 k/uL (0-0.7); Eosinophils % (A) 3 %; Lymphocytes % (A) 29 %; MCH 30.9 pg (25.0-35.0); MCHC 33.2 g/dL (31.0-37.0); MCV 92.8 fL (80.0-100.0); Mean Platelet Volume 7.9; Monocytes # (A) 0.5 k/uL (0-1.0); Monocytes % (A) 7 %; Neutrophils % (A) 57 %; Platelet Count 174 k/uL (150-450); RBC 5.17 m/uL (4.30-5.90); RDW 13.4 % (11.5-15.5); WBC 6.9 k/uL (3.8-10.6)
[2019-07-11 10:45] LABS: Albumin 4.3 g/dL (3.5-5.0); Calcium 9.4 mg/dL (8.4-10.2); Potassium 3.5 mmol/L (3.5-5.1); Total Bilirubin 1.4 mg/dL (0.2-1.3); Total Protein 6.9 g/dL (6.3-8.2)
[2019-07-11 11:01] LABS: T4, Free (Free Thyroxine) 1.07 ng/dL (0.78-2.19)
== END | disposition home or self-care (01) ==
LOC: LABPAT 09:42
PROVIDERS: ATTEND Internal Medicine Interventional Cardiology
DX: Z01.812 Encounter for preprocedural laboratory examination (principal); I25.10 Atherosclerotic heart disease of native coronary artery without angina pectoris
CPT/HCPCS: 80053; 80061; 84153; 84439; 84443; 85025

== ENCOUNTER → 2019-07-25 | Day surgery (SDC) | payer MEDICARE ==
[2019-07-18 14:15] VITALS: BMI 28.8
[~2019-07-25] MED LIST changes: -ACETAMINOPHEN TAB 500 MG TAB PO ONE; +ADENOSINE 90 MG in SODIUM CHLORIDE 0.9% 60 ML IVP ONE; +ALPRAZolam 0.25 MG TAB PO PRN; +ALPRAZolam 0.5 MG TAB PO PRN; +ASPIRIN 325 MG TAB PO STA; +ATORVASTATIN 80 MG TAB PO STA; +HYDROmorphone 1 MG/ML 1 ML SYRINGE IVP STA; +IOPAMIDOL-370 125ML BTL INJ ONE; -LIDOCAINE 1% 20 ML VIAL (10MG/ML) FOR IV START INTRADERMA PRN; +LIDOCAINE 1% INJ 10MG/ML (20 ML MDV) SQ ONE; -MELOXICAM 7.5 MG TAB PO ONE; +MIDAZOLAM 2 MG/2 ML VIAL IV ONE; -MIDAZOLAM 2 MG/2 ML VIAL IV PRN; +NITROGLYCERIN SL TABS 0.4 MG TAB SUBLINGUAL PRN; -ROPIVACAINE 246.25 MG, EPINEPHrine 0.5 MG, KETOROLAC 30 MG, cloNIDine HCL/PF 80 MCG, WA... MISCELLANE ONE; +RX INFO: IV CONTRAST WAS GIVEN 1 EACH MISC MISCELLANE PRN; +SODIUM CHLORIDE 0.9% 1,000 ML IV ONE; +SODIUM CHLORIDE 0.9% 1,000 ML IV SCH; +SODIUM CHLORIDE 0.9% 1,000 ML in EMPTY BAG 1 BAG IV ONE; -TRANEXAMIC ACID 1,000 MG in SODIUM CHLORIDE 0.9% 50 ML IVPB ONE; -ceFAZolin IN SWFI 2 GM/20 ML SYRINGE IVP ONE; -fentaNYL (PF) 50 MCG/ML 2 ML AMP IV PRN; +hydrALAZINE HCL 20 MG/ML 1 ML VIAL IVP STA
[2019-07-25 09:17] VITALS: TEMP 97.6
[2019-07-25] MEDS: VERAPAMIL SYRINGE (5 MG/10 ML) INTRAARTER ONE ×2 (12:29→12:58)
[2019-07-25 13:30] VITALS: RESP 18
--- NOTE | 2019-07-25 15:02 | CC ---
CARDIAC CATHETERIZATION REPORT CARDIAC CATHETERIZATION DATE OF SERVICE: July 25, 2019 PERFORMING PHYSICIAN: Dr. Reynaldo Morgan PROCEDURE PERFORMED: 1. Selective right and left coronary angiogram. 2. Left heart catheterization. 3. Fractional flow reserve of the right coronary artery. INDICATION: This is a pleasant 83-year-old gentleman with history of coronary artery disease and known intermittent disease involving the right coronary artery, continuous to have shortness of breath with exertion which seems to be progressed compared to before. Because of that and because of his history of coronary artery disease, he was brought today to undergo a heart catheterization. APPROACH: Right radial artery. COMPLICATION: None. LEVEL OF SEDATION: Moderate with sedation length of 34 minutes. PROCEDURE DESCRIPTION: After obtaining an informed consent, the patient was brought to the cardiac catheterization laboratory. The right radial artery was cannulated using micropuncture technique, the micropuncture wire passed easily and then I placed a 6-Maori sheath at the right radial artery. After that, I gave the patient 2 mg of verapamil IA and 10,000 units of heparin IV. After that, I did selective right and left coronary angiogram using JR4 and JL3.5 catheters. Left heart catheterization was performed using the JR4 catheter which crossed the aortic valve, then I did pullback across the valve. After that, I did FFR of the RCA. Please see a separate paragraph for that. SELECTIVE CORONARY ANGIOGRAM: 1. The right coronary artery is a large-caliber vessel. It is dominant vessel. The RCA appeared to have intermediate to severe lesion in the mid portion, appears to be in the range of 60% to 70%. FFR was performed and came in to be to be at 0.85. 2. The left main is angiographically normal. It bifurcates into left circumflex and left anterior descending artery. 3. The left circumflex is a large-caliber vessel. It is a nondominant vessel. The proximal circumflex has mild to moderate disease only. It gives rise into a large OM branch which has also mild to moderate disease only. '. 4. The left anterior descending artery is a large-caliber vessel. The proximal LAD appeared to have mild disease only. It gives rises into the first diagonal branch which is a large-caliber vessel, has mild diffuse disease and LAD after that continues with mild disease only. HEMODYNAMICS: The LVEDP was 6 to 8 mmHg without significant gradient across the aortic valve. FFR OF THE RCA: After zeroing the Doppler wire and equalizing between the Doppler wire and the guiding catheter, we did an FFR per IV adenosine infusion. The FFR came in to be at 0.85. CONCLUSION: Intermediate to severe disease involving the mid right coronary artery. FFR was applied and came in to be at 0.85. Mild to moderate disease involving the left coronary system. POSTPROCEDURE MANAGEMENT: 1. Aggressive cholesterol control. 2. Risk factors modifications. 3. Follow up with the patient. MMANGELLA / IJN: [id number] /
[2019-07-25 17:06] VITALS: BP 131/86; PULSE 57
== END ==
LOC: CATHCVL 08:52
PROVIDERS: ATTEND Internal Medicine Interventional Cardiology
DX: I25.110 Atherosclerotic heart disease of native coronary artery with unstable angina pectoris (principal); I10 Essential (primary) hypertension; I71.2 Thoracic aortic aneurysm, without rupture; E78.5 Hyperlipidemia, unspecified; E78.00 Pure hypercholesterolemia, unspecified; Z79.82 Long term (current) use of aspirin; Z79.899 Other long term (current) drug therapy; Z88.5 Allergy status to narcotic agent; Z88.8 Allergy status to other drugs, medicaments and biological substances
CPT/HCPCS: 93571; 93458; 85347; C1887; C1769; C1894; J2250; J2001; J0153; J1644; Q9967

== ENCOUNTER → 2019-12-06 | Outpatient (CLI) | payer MEDICARE | END | disposition home or self-care (01) | LOC: LABWHC1 14:13 | PROVIDERS: ATTEND Urology | DX: C61 Malignant neoplasm of prostate (principal) | CPT/HCPCS: 36415; 84153 ==

== ENCOUNTER 2020-04-21 15:18 | Observation (INO) | payer MEDICARE ==
--- NOTE | 2020-04-21 17:11 | ED ---
General Adult HPI - General Chief complaint: Weakness Stated complaint: Exhaustion Time Seen by Provider: 04/21/20 16:51 Source: patient, family Mode of arrival: wheelchair Limitations: no limitations - History of Present Illness Initial comments: Dictation was produced using [email or web address] dictation software. please excuse any grammatical, word or spelling errors. This patient was cared for during a federal and state declared state of emergency secondary to Covid 19 Chief Complaint: 84-year-old male presents with exertional dyspnea and fatigue History of Present Illness: A 4-year-old male he has past medical history of coronary artery disease, hypertension. Patient states that over the last month he's been feeling more tired than usual. Exam believe provides is when he goes outside to do yard work he notices that he gets worsening exertional shortness of breath. Patient has history of coronary artery disease and one of his cor onary arteries that patient describes will need to be Here in the near future. Patient has any exertional chest pain. at bedside reports that patient is very sleepy all the time. Patient denies any current ongoing symptoms as I am obtaining history of present illness. The ROS documented in this emergency department record has been reviewed and confirmed by me. Those systems with pertinent positive or negative responses have been documented in the HPI. All other systems are other negative and/or noncontributory. PHYSICAL EXAM: General Impression: Alert and oriented x3, not in acute distress HEENT: Normocephalic atraumatic, extra-ocular movements intact, pupils equal and reactive to light bilaterally, mucous membranes moist. Cardiovascular: Heart regular rate and rhythm Chest: Able to complete full sentences, no retractions, no tachypnea Abdomen: abdomen soft, non-tender, non-distended, no organomegaly Musculoskeletal: Pulses present and equal in all extremities, no peripheral edema Motor: no focal deficits noted Neurological: CN II-XII grossly intact, no focal motor or sensory deficits noted Skin: Intact with no visualized rashes Psych: Normal affect and mood ED course: 84-year-old male presents with exertional dyspnea worsening over the last month and noticeable over the last week. Vital signs upon arrival shows 92% on room air Laboratory evaluation obtained. CBC unremarkable. Coag panel is negative. Metabolic panel shows sodium 132. No acidosis. Renal markers slightly elevated however within patient's baseline. Glucose is elevated at 652. Rest of labs unremarkable. Chest x-ray is nonacute. Patient reevaluated at bedside. Monoclonal gammopathy and sees a oncologist. Patient is not taking any anti- hyperglycemics. Given patient's exertional dyspnea is likely secondary to dehydration from new-onset diabetes however he does have risk factors of coronary artery disease. We will have patient admitted for glucose control, serial troponins. Patient be admitted to [facility]. EKG interpretation: Ventricular rate 73, sinus rhythm,. Interval to 24, QRS 104, QTC 469. No AL prolongation, no QTC prolongation, no ST or T-wave changes noted. EKG compared to a 11/06/2013 showing no changes. Overall, this EKG is unremarkable - Related Data Home Medications Medication Instructions Recorded Confirmed Aspirin 162 mg PO HS 10/10/13 07/25/19 Cetirizine HCl [Zyrtec] 10 mg PO QAM PRN 10/10/13 07/25/19 Multivitamin [Men's Multi-Vitamin] 1 tab PO HS 10/10/13 07/25/19 Pantoprazole Sodium [Protonix] 40 mg PO QAM 10/10/13 07/25/19 [place] Oil/[place]-3 Fatty Acids 1 cap PO HS 10/10/13 07/25/19 [Fish Oil 500 mg Softgel] Atenolol/Chlorthalidone 1 tab PO DAILY 12/29/14 07/25/19 [Atenolol-Chlorthalidone 50-25] allopurinoL [Zyloprim] 300 mg PO HS 06/19/17 07/25/19 Atorvastatin [Lipitor] 40 mg PO HS 04/10/18 07/25/19 Montelukast Sodium [Singulair] 10 mg PO HS 04/10/18 07/25/19 Ubidecarenone [Co Q-10] 200 mg PO DAILY 07/25/19 07/25/19 Allergies Allergy/AdvReac Type Severity Reaction Status Date / Time meperidine HCl [From Demerol] Allergy SEVERE Verified 04/21/20 16:13 SWEATING, LOW BLOOD PRESSURE Review of Systems ROS Statement: Those systems with pertinent positive or pertinent negative responses have been documented in the HPI. ROS Other: All systems not noted in ROS Statement are negative. Past Medical History Past Medical History: Cancer, GERD/Reflux, Hypertension Additional Past Medical History / Comment(s): MITRAL VALVE, GOUT, PROSTATE CANCER, CONSTIPATION, PALPITATIONS History of Any Multi-Drug Resistant Organisms: None Reported Past Surgical History: Hernia Repair, Orthopedic Surgery, Prostate Surgery Additional Past Surgical History / Comment(s): BENIGN TUMORS REMOVED ANKLE, PRE CANCEROUS LESION REMOVED, PARTIAL AMPUTATION OF 3RD TOE RT FOOT, CATARACTS MANJEET,GANGLION CYST REMOVED FROM LT KNEE, LT INGUINAL & UMBILICAL HERNIA SX,DENTAL IMPLANTS (1)TOP, (2) BOTTOM, ROBOTIC PROSTATECTOMY 2009@ [facility] HOSP. COLONOSCOPY, recent bronch. 2017 Past Anesthesia/Blood Transfusion Reactions: No Reported Reaction, Family History of Problems w/ Anesthesia Additional Past Anesthesia/Blood Transfusion Reaction / Comment(s): NAUSEA Past Psychological History: No Psychological Hx Reported Smoking Status: Former smoker Past Alcohol Use History: Rare Past Drug Use History: None Reported - Past Family History Mother Family Medical History: Cancer Brother(s) Family Medical History: Cancer Additional Family Medical History / Comment(s): PROSTATE Sister(s) Family Medical History: Cancer Additional Family Medical History / Comment(s): 1 W/ LUNG CA, 1 W/ THROAT CA General Exam Limitations: no limitations Course Vital Signs 04/21/20 04/21/20 16:10 16:59 Temperature 98.0 F Pulse Rate 78 Respiratory 20 21 Rate Blood Pressure 135/84 O2 Sat by Pulse 92 L Oximetry Medical Decision Making - Lab Data Result diagrams: 04/21/20 17:04 04/21/20 17:04 Lab Results 04/21/20 04/21/20 04/21/20 Range/Units 17:04 17:04 17:04 WBC 9.8 (3.8-10.6) k/uL RBC 5.33 (4.30-5.90) m/uL Hgb 17.1 (13.0-17.5) gm/dL Hct 49.3 (39.0-53.0) % MCV 92.5 (80.0-100.0) fL MCH 32.2 (25.0-35.0) pg MCHC 34.8 (31.0-37.0) g/dL RDW 12.7 (11.5-15.5) % Plt Count 181 (150-450) k/uL MPV 8.0 Neutrophils % 71 % Lymphocytes % 18 % Monocytes % 6 % Eosinophils % 2 % Basophils % 1 % Neutrophils # 6.9 (1.3-7.7) k/uL Lymphocytes # 1.7 (1.0-4.8) k/uL Monocytes # 0.6 (0-1.0) k/uL Eosinophils # 0.2 (0-0.7) k/uL Basophils # 0.1 (0-0.2) k/uL PT 10.6 (9.0-12.0) sec INR 1.0 (<1.2) APTT 21.2 L (22.0-30.0) sec Sodium 132 L (137-145) mmol/L Potassium 3.6 (3.5-5.1) mmol/L Chloride 93 L (98-107) mmol/L Carbon Dioxide 27 (22-30) mmol/L Anion Gap 12 mmol/L BUN 37 H (9-20) mg/dL Creatinine 1.29 H (0.66-1.25) mg/dL Est GFR (CKD-EPI)AfAm 59 (>60 ml/min/1.73 sqM) Est GFR (CKD-EPI)NonAf 51 (>60 ml/min/1.73 sqM) Glucose 652 H* (74-99) mg/dL Plasma Lactic Acid Ab (0.7-2.0) mmol/L Calcium 10.0 (8.4-10.2) mg/dL Ionized Calcium [place] 4.6 (4.5-5.3) mg/dL Magnesium 1.8 (1.6-2.3) mg/dL Total Bilirubin 1.5 H (0.2-1.3) mg/dL AST 36 (17-59) U/L ALT 35 (4-49) U/L Alkaline Phosphatase 126 (38-126) U/L Ammonia (<30) umol/L Troponin I (0.000-0.034) ng/mL Total Protein 7.1 (6.3-8.2) g/dL Albumin 4.5 (3.5-5.0) g/dL 04/21/20 04/21/20 Range/Units 17:04 17:04 WBC (3.8-10.6) k/uL RBC (4.30-5.90) m/uL Hgb (13.0-17.5) gm/dL Hct (39.0-53.0) % MCV (80.0-100.0) fL MCH (25.0-35.0) pg MCHC (31.0-37.0) g/dL RDW (11.5-15.5) % Plt Count (150-450) k/uL MPV Neutrophils % % Lymphocytes % % Monocytes % % Eosinophils % % Basophils % % Neutrophils # (1.3-7.7) k/uL Lymphocytes # (1.0-4.8) k/uL Monocytes # (0-1.0) k/uL Eosinophils # (0-0.7) k/uL Basophils # (0-0.2) k/uL PT (9.0-12.0) sec INR (<1.2) APTT (22.0-30.0) sec Sodium (137-145) mmol/L Potassium (3.5-5.1) mmol/L Chloride (98-107) mmol/L Carbon Dioxide (22-30) mmol/L Anion Gap mmol/L BUN (9-20) mg/dL Creatinine (0.66-1.25) mg/dL Est GFR (CKD-EPI)AfAm (>60 ml/min/1.73 sqM) Est GFR (CKD-EPI)NonAf (>60 ml/min/1.73 sqM) Glucose (74-99) mg/dL Plasma Lactic Acid Ab 2.0 (0.7-2.0) mmol/L Calcium (8.4-10.2) mg/dL Ionized Calcium Don[place] (4.5-5.3) mg/dL Magnesium (1.6-2.3) mg/dL Total Bilirubin (0.2-1.3) mg/dL AST (17-59) U/L ALT (4-49) U/L Alkaline Phosphatase (38-126) U/L Ammonia <9 (<30) umol/L Troponin I <0.012 (0.000-0.034) ng/mL Total Protein (6.3-8.2) g/dL Albumin (3.5-5.0) g/dL Disposition Clinical Impression: Hyperglycemia, Dyspnea Disposition: ADMITTED IP TO THIS [facility] Condition: Fair Referrals: Mari Tarango MD [Primary Care Provider] - 1-2 days Decision Time: 18:15
[2020-04-21 17:32] LABS: Basophils # (A) 0.1 k/uL (0-0.2); Basophils % (A) 1 %; Eosinophils # (A) 0.2 k/uL (0-0.7); Eosinophils % (A) 2 %; HCT 49.3 % (39.0-53.0); HGB 17.1 gm/dL (13.0-17.5); Lymphocytes # (A) 1.7 k/uL (1.0-4.8); Lymphocytes % (A) 18 %; MCH 32.2 pg (25.0-35.0); MCHC 34.8 g/dL (31.0-37.0); MCV 92.5 fL (80.0-100.0); Monocytes # (A) 0.6 k/uL (0-1.0); Monocytes % (A) 6 %; Neutrophils # (A) 6.9 k/uL (1.3-7.7); Neutrophils % (A) 71 %; Platelet Count 181 k/uL (150-450); RBC 5.33 m/uL (4.30-5.90); RDW 12.7 % (11.5-15.5); WBC 9.8 k/uL (3.8-10.6)
[2020-04-21 17:36] LABS: Ionized Calcium 4.6 mg/dL (4.5-5.3)
[2020-04-21 17:44] LABS: Albumin 4.5 g/dL (3.5-5.0); Magnesium 1.8 mg/dL (1.6-2.3); Potassium 3.6 mmol/L (3.5-5.1); Prothrombin Time 10.6 sec (9.0-12.0); Total Bilirubin 1.5 mg/dL (0.2-1.3); Total Protein 7.1 g/dL (6.3-8.2)
--- NOTE | 2020-04-21 17:52 | XR ---
EXAMINATION TYPE: XR chest 2V DATE OF EXAM: 04/21/2020 COMPARISON: 11/07/2019 HISTORY: Short of breath TECHNIQUE: FINDINGS: Heart and mediastinum are normal. Lungs are clear. Diaphragm is normal. There are no hilar masses. Bony thorax is intact. IMPRESSION: No active cardiopulmonary disease. Normal heart. No change.
[2020-04-21 17:58] LABS: Partial Thromboplastin Time 21.2 sec (22.0-30.0)
[2020-04-21] MEDS ORDERED: SODIUM CHLORIDE 0.9% 1,000 ML IV STA (18:02)
[2020-04-21] MEDS ORDERED: NALOXONE 0.4 MG/ML 1 ML VIAL IV PRN (18:11)
[2020-04-21] MEDS ORDERED: INSULIN REGULAR 100 UNIT/ML VIAL IV ONE (18:25)
[2020-04-21] MEDS: SODIUM CHLORIDE 0.9% 1,000 ML IV SCH (19:12)
[2020-04-21 20:09] LABS: Glucose,Whole Blood 413 mg/dL (75-99)
[2020-04-21 22:02] LABS: Glucose,Whole Blood 450 mg/dL (75-99)
[2020-04-21] MEDS ORDERED: INSULIN ASPART (NovoLOG) 100 UNIT/ML VIAL SQ ONE (22:26)
[2020-04-22] MEDS: SODIUM CHLORIDE 0.9% 1,000 ML IV SCH (06:21)
[2020-04-22 06:37] LABS: Glucose,Whole Blood 263 mg/dL (75-99)
[2020-04-22] MEDS ORDERED: metFORMIN 500 MG TAB PO SCH (07:30)
[2020-04-22 08:04] LABS: Calcium 9.3 mg/dL (8.4-10.2); Potassium 3.2 mmol/L (3.5-5.1)
--- NOTE | 2020-04-22 08:20 | P.HPIM ---
History of Present Illness This is a pleasant 84 years old male with past medical history of coronary artery disease, he had recent cardiac cath on 07/2019 showing intermediate to severe disease of the right coronary artery and mild to moderate disease involv ing the left coronary system, hypertension, history of prostatic cancer, cataract, monoclonal gammopathy, GERD. Presents because of generalized weakness and tiredness for about one week associated with some minimal exertional dyspnea but no chest pain or coughing. Patient states that he has been drinking a lot of water and he was peeing every 1 hour which is unusual for him for the last week. Patient on admission was hyperglycemic with glucose more than 600 and wants a controlled sugar patient states that he peed only once. No other specific complaints, no headaches or numbness or weakness, no abdominal pain, no change in bowel habits. No fever. No nausea vomiting Vitals are stable. CBC is unremarkable, INR is normal at 1.0. Sodium 132, creatinine 1.29, baseline 1.0-1.5. Height glucose 652, and further reading was 413, 450, 263. Rest of BMP and liver enzymes were unremarkable. Serial troponins are negative with a 0.012, 0.016, less than 0.012. EKG showing normal sinus rhythm at 73 with sinus arrhythmia with first degree AV block with PVCs, no significant ST-T changes. Chest x-ray: No acute process by Radiologist. In the emergency room he received short-acting insulin 10 units 2 and 1 L of normal saline and started at 200 mL per hour Sales Intern has been consulted from emergency room. He states that his boat pilot is Dr. Paige, he is planning for possible reevaluation for stent placement on May 2020 as he had recent cardiac cath on 07/2019 showing intermediate to severe disease of the right coronary artery and mild to moderate disease involving the left coronary system Review of Systems CONSTITUTIONAL: No fever, no malaise, no fatigue. HEENT: No recent visual problems or hearing problems. Denied any sore throat. CARDIOVASCULAR: No orthopnea, PND, no palpitations, no syncope. PULMONARY: No shortness of breath, no cough, no hemoptysis. GASTROINTESTINAL: No diarrhea, no nausea, no vomiting, no abdominal pain. Nor moactive bowel sounds. NEUROLOGICAL: No headaches, no weakness, no numbness. HEMATOLOGICAL: Denies any bleeding or petechiae. GENITOURINARY: Denies any burning micturition, frequency, or urgency. MUSCULOSKELETAL/RHEUMATOLOGICAL: Denies any joint pain, swelling, or any muscle pain. ENDOCRINE: Denies any polyuria or polydipsia. Past Medical History Past Medical History: Cancer, GERD/Reflux, Hypertension Additional Past Medical History / Comment(s): MITRAL VALVE, GOUT, PROSTATE CANCER, CONSTIPATION, PALPITATIONS History of Any Multi-Drug Resistant Organisms: None Reported Past Surgical History: Hernia Repair, Orthopedic Surgery, Prostate Surgery Additional Past Surgical History / Comment(s): BENIGN TUMORS REMOVED ANKLE, PRE CANCEROUS LESION REMOVED, PARTIAL AMPUTATION OF 3RD TOE RT FOOT, CATARACTS MANJEET,GANGLION CYST REMOVED FROM LT KNEE, LT INGUINAL & UMBILICAL HERNIA SX,DENTAL IMPLANTS (1)TOP, (2) BOTTOM, ROBOTIC PROSTATECTOMY 2009@ [facility]. COLONOSCOPY, recent bronch. 2017 Past Anesthesia/Blood Transfusion Reactions: No Reported Reaction, Family History of Problems w/ Anesthesia Additional Past Anesthesia/Blood Transfusion Reaction / Comment(s): NAUSEA Past Psychological History: No Psychological Hx Reported Smoking Status: Never smoker Past Alcohol Use History: Rare Past Drug Use History: None Reported - Past Family History Mother Family Medical History: Cancer Brother(s) Family Medical History: Cancer Additional Family Medical History / Comment(s): PROSTATE Sister(s) Family Medical History: Cancer Additional Family Medical History / Comment(s): 1 W/ LUNG CA, 1 W/ THROAT CA Medications and Allergies Home Medications Medication Instructions Recorded Confirmed Type Cetirizine HCl [Zyrtec] 10 mg PO DAILY PRN 10/10/13 04/21/20 History Multivitamin [Men's Multi-Vitamin] 1 tab PO HS 10/10/13 04/21/20 History Pantoprazole Sodium [Protonix] 40 mg PO HS 10/10/13 04/21/20 History allopurinoL [Zyloprim] 300 mg PO DAILY 06/19/17 04/21/20 History Atorvastatin [Lipitor] 40 mg PO DAILY 04/10/18 04/21/20 History Montelukast Sodium [Singulair] 10 mg PO HS 04/10/18 04/21/20 History Aspirin EC [Ecotrin Low Dose] 162 mg PO DAILY 04/21/20 04/21/20 History Chlorthalidone 25 mg PO DAILY 04/21/20 04/21/20 History Fish Oil(Unknown Dose) 1 cap PO DAILY 04/21/20 04/21/20 History Triamcinolone 0.025% Cream 1 applic TOPICAL DAILY PRN 04/21/20 04/21/20 History [Kenalog 0.025% Cream] atenoloL [Atenolol] 25 mg PO HS 04/21/20 04/21/20 History Allergies Allergy/AdvReac Type Severity Reaction Status Date / Time meperidine HCl [From Demerol] AdvReac SEVERE Verified 04/21/20 18:57 SWEATING, LOW BLOOD PRESSURE Physical Exam Vitals: Vital Signs Temp Pulse Pulse Resp BP BP Pulse Ox 04/22/20 03:00 97.8 F 86 18 126/78 97 04/21/20 21:59 98 F 72 18 142/93 96 04/21/20 20:50 75 18 150/84 98 04/21/20 16:59 21 04/21/20 16:10 98.0 F 78 20 135/84 92 L Intake and Output 04/21/20 04/22/20 04/22/20 22:59 06:59 14:59 Other: Voiding Method Toilet Toilet # Voids 2 Weight 102.058 kg GENERAL: The patient is alert and oriented x3, not in any acute distress. Well developed, well nourished. HEENT: Pupils are round and equally reacting to light. EOMI. No scleral icterus. No conjunctival pallor. Normocephalic, atraumatic. No pharyngeal erythema. No thyromegaly. CARDIOVASCULAR: S1 and S2 present. No murmurs, rubs, or gallops. PULMONARY: Chest is clear to auscultation, no wheezing or crackles. ABDOMEN: Soft, nontender, nondistended, normoactive bowel sounds. No palpable organomegaly. MUSCULOSKELETAL: No joint swelling or deformity. EXTREMITIES: No cyanosis, clubbing, or pedal edema. NEUROLOGICAL: Gross neurological examination did not reveal any focal deficits. SKIN: No rashes. No petechiae Results CBC & Chem 7: 04/21/20 17:04 04/22/20 07:31 Labs: Abnormal Lab Results - Last 24 Hours (Table) 04/21/20 04/21/20 04/21/20 Range/Units 17:04 17:04 20:07 APTT 21.2 L (22.0-30.0) sec Sodium 132 L (137-145) mmol/L Chloride 93 L (98-107) mmol/L BUN 37 H (9-20) mg/dL Creatinine 1.29 H (0.66-1.25) mg/dL Glucose 652 H* (74-99) mg/dL POC Glucose (mg/dL) 413 H (75-99) mg/dL Total Bilirubin 1.5 H (0.2-1.3) mg/dL 04/21/20 04/22/20 Range/Units 21:55 06:25 APTT (22.0-30.0) sec Sodium (137-145) mmol/L Chloride (98-107) mmol/L BUN (9-20) mg/dL Creatinine (0.66-1.25) mg/dL Glucose (74-99) mg/dL POC Glucose (mg/dL) 450 H 263 H (75-99) mg/dL Total Bilirubin (0.2-1.3) mg/dL Assessment and Plan Assessment: Hyperglycemia, with no history of diabetes Generalized weakness and tiredness Dehydration Exertional dyspnea, rule out cardiology causes. But I think it's mostly secondary to above problems History of coronary artery disease Hypertension Cataract History of monoclonal comorbidity History of GERD History of prostate cancer Plan: This is a pleasant 84 years old male who presents with hyperglycemia. Tiredness weakness, polyuria/polydipsia. Check hemoglobin A1c. Continue with hydration. Start metformin. Keep checking his sugar. Patient exertional dyspnea mostly related to his hyperglycemia with dehydration and tenderness, however given his extensive cardiac history, cardiology team were consulted. Labs and medication were reviewed.. Continue same treatment. Continue with symptomatic treatment. Resume home medication. Monitor lytes and vitals. DVT and GI prophylaxis. Further recommendations depends on the clinical course of the patient DVT prophylaxis: Subcutaneous heparin GI Prophylaxis: Pepcid
[2020-04-22 08:21] VITALS: BP 134/87; PULSE 65; RESP 16; TEMP 97.5
[2020-04-22] MEDS: INSULIN ASPART (NovoLOG) 100 UNIT/ML VIAL SQ SCH ×2 (08:25→12:49)
[2020-04-22] MEDS ORDERED: FAMOTIDINE 20 MG/2 ML VIAL IV SCH (09:00)
[2020-04-22] MEDS ORDERED: FISH OIL PO SCH (09:00)
[2020-04-22] MEDS ORDERED: ATORVASTATIN 40 MG TAB PO SCH (09:00)
[2020-04-22] MEDS ORDERED: TRIAMCINOLONE 0.1% CREAM 80 GM TUBE TOPICAL PRN (09:00)
[2020-04-22] MEDS ORDERED: ASPIRIN 81 MG PO SCH (09:00)
[2020-04-22] MEDS ORDERED: HEPARIN SODIUM,PORCINE 5,000 UNIT/ML 1 ML VIAL SQ SCH (09:00)
[2020-04-22] MEDS ORDERED: CHLORTHALIDONE 25 MG TAB PO SCH (09:00)
[2020-04-22] MEDS ORDERED: LORATADINE 10 MG TAB PO PRN (09:00)
[2020-04-22] MEDS ORDERED: lisinopriL 10 MG TAB PO SCH (09:00)
[2020-04-22] MEDS ORDERED: allopurinoL 300 MG TAB PO SCH (09:00)
--- NOTE | 2020-04-22 09:53 | P.CRDCN ---
History of Present Illness History of present illness: increased fatigue, polyuria and polydipsia for the previous 1 week. HISTORY OF PRESENTING ILLNESS This is a pleasant 84-year-old male past medical history significant for coronary artery disease with intermediate to severe disease involving the mid RCA noted on cardiac catheterization July 2024 far was 0.85, hypertension, valvular heart disease and dyslipidemia. He follows in the office with Dr. Morgan. We have been asked to see in consultation for her exertional dyspnea. He states for the previous one week he has noticed increased fatigue, thirst and urination. He has been following closely with Dr. Morgan regarding a lesion in the RCA that was found to be nonischemic on recent catheterization. Given his known history of coronary artery disease the patient thought his symptoms of fatigue were possibly related to that. She didn't make an appointment with Dr. Morgan to see him in the office the end of the month. However his symptoms became so bothersome he came to the emergency department. On the arrival to the emergency department his blood glucose was noted to be 652. He has never been diagnosed with diabetes in the past. He was started on insulin along with metformin. He denies ever having had any symptoms of chest pain, shortness of breath, dizziness or palpitations. He is seen and examined resting comfortably laying flat in bed in no acute distress. DIAGNOSTICS EKG reveals sinus mechanism with first-degree AV block, single wide complex PVC, left anterior fascicular block, poor R-wave progression and T-wave inversions noted in the precordial leads. Chest xray negative for an acute cardiopulmonary process. Laboratory reviewed, CBC unremarkable, cardiac enzymes negative 3, sodium 139, potassium 3.2, creatinine on admission 1.2 9 repeat today 1.15, magnesium 1.8. Current cardiac medications include aspirin 162 mg daily, atorvastatin 40 mg daily, chlorthalidone 25 mg daily and atenolol 25 mg at bedtime. Most recent echocardiogram obtained in the office December 2018 reveals preserved LV systolic function with ejection fraction 55%, mild concentric LVH, moderately dilated right ventricle with normal function, moderately dilated right atrium, mild aortic regurgitation, mild to moderate mitral regurgitation and mitral valve prolapse noted, mild to moderate tricuspid regurgitation and moderate pulmonic regurgitation REVIEW OF SYSTEMS At the time of my exam: CONSTITUTIONAL: Denies fever or chills. CARDIOVASCULAR: Denies chest pain, shortness of breath, orthopnea, PND or palpitations. RESPIRATORY: Denies cough. GASTROINTESTINAL: Denies abdominal pain, diarrhea, constipation, nausea or vomiting. MUSCULOSKELETAL: Denies myalgias. NEUROLOGIC: Denies numbness, tingling or weakness. ENDOCRINE: Denies fatigue, weight change, polydipsia or polyurina. GENITOURINARY: Denies burning, hematuria or urgency with micturation. HEMATOLOGIC: Denies history of anemia or bleeding. PHYSICAL EXAMINATION Blood pressure 134/87 heart rate 65 afebrile and maintaining oxygen saturation on room air. CONSTITUTIONAL: No apparent distress. HEENT: Head is normocephalic. Pupils are equal, round. Sclerae anicteric. Mucous membranes of the mouth are moist. No JVD. No carotid bruit. CHEST EXAMINATION: Lungs are clear to auscultation. No chest wall tenderness is noted on palpation or with deep breathing. HEART EXAMINATION: Regular rate and rhythm. S1, S2 heard. Soft systolic ejection murmur at the left sternal border, no gallops or rub. ABDOMEN: Soft, nontender. Positive bowel sounds. EXTREMITIES: 2+ peripheral pulses, no lower extremity edema and no calf tenderness. NEUROLOGIC EXAMINATION: Patient is awake, alert and oriented x3. ASSESSMENT Increased fatigue with new onset diabetes mellitus Diabetes mellitus Coronary artery disease Hypertension Dyslipdiemia Valvular heart disease PLAN An acute coronary event has been ruled out. Decrease aspirin to 81 mg daily. Given new diagnosis of diabetes mellitus we will initiate lisinopril 10 mg daily. Obtain 2D echocardiogram and doppler study to assess cardiac structure and function. No further cardiac workup required, symptoms related to new onset diabetes mellitus. Follow up with Dr. Morgan upon discharge. Thank you kindly for this consultation. Nurse Practitioner note has been reviewed, I agree with a documented findings and plan of care. Patient was seen and examined. Past Medical History Past Medical History: Cancer, GERD/Reflux, Hypertension Additional Past Medical History / Comment(s): MITRAL VALVE, GOUT, PROSTATE CANCER, CONSTIPATION, PALPITATIONS History of Any Multi-Drug Resistant Organisms: None Reported Past Surgical History: Hernia Repair, Orthopedic Surgery, Prostate Surgery Additional Past Surgical History / Comment(s): BENIGN TUMORS REMOVED ANKLE, PRE CANCEROUS LESION REMOVED, PARTIAL AMPUTATION OF 3RD TOE RT FOOT, CATARACTS MANJEET,GANGLION CYST REMOVED FROM LT KNEE, LT INGUINAL & UMBILICAL HERNIA SX,DENTAL IMPLANTS (1)TOP, (2) BOTTOM, ROBOTIC PROSTATECTOMY 2009@ [facility]. COLONOSCOPY, recent bronch. 2017 Past Anesthesia/Blood Transfusion Reactions: No Reported Reaction, Family History of Problems w/ Anesthesia Additional Past Anesthesia/Blood Transfusion Reaction / Comment(s): NAUSEA Past Psychological History: No Psychological Hx Reported Smoking Status: Never smoker Past Alcohol Use History: Rare Past Drug Use History: None Reported - Past Family History Mother Family Medical History: Cancer Brother(s) Family Medical History: Cancer Additional Family Medical History / Comment(s): PROSTATE Sister(s) Family Medical History: Cancer Additional Family Medical History / Comment(s): 1 W/ LUNG CA, 1 W/ THROAT CA Medications and Allergies Home Medications Medication Instructions Recorded Confirmed Type Cetirizine HCl [Zyrtec] 10 mg PO DAILY PRN 10/10/13 04/21/20 History Multivitamin [Men's Multi-Vitamin] 1 tab PO HS 10/10/13 04/21/20 History Pantoprazole Sodium [Protonix] 40 mg PO HS 10/10/13 04/21/20 History allopurinoL [Zyloprim] 300 mg PO DAILY 06/19/17 04/21/20 History Atorvastatin [Lipitor] 40 mg PO DAILY 04/10/18 04/21/20 History Montelukast Sodium [Singulair] 10 mg PO HS 04/10/18 04/21/20 History Aspirin EC [Ecotrin Low Dose] 162 mg PO DAILY 04/21/20 04/21/20 History Chlorthalidone 25 mg PO DAILY 04/21/20 04/21/20 History Fish Oil(Unknown Dose) 1 cap PO DAILY 04/21/20 04/21/20 History Triamcinolone 0.025% Cream 1 applic TOPICAL DAILY PRN 04/21/20 04/21/20 History [Kenalog 0.025% Cream] atenoloL [Atenolol] 25 mg PO HS 04/21/20 04/21/20 History Allergies Allergy/AdvReac Type Severity Reaction Status Date / Time meperidine HCl [From Demerol] AdvReac SEVERE Verified 04/21/20 18:57 SWEATING, LOW BLOOD PRESSURE Physical Exam Vitals: Vital Signs Temp Pulse Pulse Resp BP BP Pulse Ox 04/22/20 03:00 97.8 F 86 18 126/78 97 04/21/20 21:59 98 F 72 18 142/93 96 04/21/20 20:50 75 18 150/84 98 04/21/20 16:59 21 04/21/20 16:10 98.0 F 78 20 135/84 92 L Intake and Output 04/21/20 04/22/20 04/22/20 22:59 06:59 14:59 Other: Voiding Method Toilet Toilet # Voids 2 Weight 102.058 kg Results 04/21/20 17:04 04/22/20 07:31 Cardiac Enzymes 04/21/20 04/21/20 04/21/20 Range/Units 17:04 17:04 20:09 AST 36 (17-59) U/L Troponin I <0.012 0.016 (0.000-0.034) ng/mL 04/21/20 Range/Units 22:44 AST (17-59) U/L Troponin I <0.012 (0.000-0.034) ng/mL Coagulation 04/21/20 Range/Units 17:04 PT 10.6 (9.0-12.0) sec APTT 21.2 L (22.0-30.0) sec CBC 04/21/20 Range/Units 17:04 WBC 9.8 (3.8-10.6) k/uL RBC 5.33 (4.30-5.90) m/uL Hgb 17.1 (13.0-17.5) gm/dL Hct 49.3 (39.0-53.0) % Plt Count 181 (150-450) k/uL Comprehensive Metabolic Panel 04/21/20 Range/Units 17:04 Sodium 132 L (137-145) mmol/L Potassium 3.6 (3.5-5.1) mmol/L Chloride 93 L (98-107) mmol/L Carbon Dioxide 27 (22-30) mmol/L BUN 37 H (9-20) mg/dL Creatinine 1.29 H (0.66-1.25) mg/dL Glucose 652 H* (74-99) mg/dL Calcium 10.0 (8.4-10.2) mg/dL AST 36 (17-59) U/L ALT 35 (4-49) U/L Alkaline Phosphatase 126 (38-126) U/L Total Protein 7.1 (6.3-8.2) g/dL Albumin 4.5 (3.5-5.0) g/dL Current Medications Generic Name Dose Route Start Last Admin Trade Name Monika PRN Reason Stop Dose Admin Allopurinol 300 mg 04/22/20 09:00 Allopurinol 300 Mg Tab PO DAILY [facility] Aspirin 162 mg 04/22/20 09:00 Aspirin 81 Mg PO DAILY [facility] Atenolol 25 mg 04/22/20 21:00 Atenolol 25 Mg Tab PO HS [facility] Atorvastatin Calcium 40 mg 04/22/20 09:00 Atorvastatin 40 Mg Tab PO DAILY [facility] Chlorthalidone 25 mg 04/22/20 09:00 Chlorthalidone 25 Mg Tab PO DAILY [facility] Sodium Chloride 1,000 mls @ 100 mls/hr 04/21/20 18:15 04/22/20 06:21 Saline 0.9% IV 100 mls/hr .Q10H [facility] Administration Insulin Aspart 0 unit 04/22/20 07:30 Insulin Aspart (Novolog) 100 Unit/Ml Vial SQ AC-TID [facility] Protocol Loratadine 10 mg 04/22/20 09:00 Loratadine 10 Mg Tab PO DAILY PRN Allergy Symptoms Metformin HCl 1,000 mg 04/22/20 07:30 Metformin 500 Mg Tab PO BID-W/MEALS [facility] Montelukast Sodium 10 mg 04/22/20 21:00 Montelukast 10 Mg Tab PO HS [facility] Multivitamins 1 each 04/22/20 21:00 Multivitamins, Thera 1 Each Tab PO HS [facility] Naloxone HCl 0.2 mg 04/21/20 18:11 Naloxone 0.4 Mg/Ml 1 Ml Vial IV Q2M PRN Opioid Reversal Pantoprazole Sodium 40 mg 04/22/20 21:00 Pantoprazole 40 Mg Tablet PO HS [facility] Triamcinolone Acetonide 1 applic 04/22/20 09:00 Triamcinolone 0.1% Cream 80 Gm Tube TOPICAL DAILY PRN ROSACEA Intake and Output 04/21/20 04/22/20 04/22/20 22:59 06:59 14:59 Other: Voiding Method Toilet Toilet # Voids 2 Weight 102.058 kg 04/21/20 17:04 04/21/20 17:04
[2020-04-22 11:09] LABS: Glucose,Whole Blood 328 mg/dL (75-99)
[2020-04-22 14:25] VITALS: BMI 28.8
[2020-04-22 14:29] LABS: Glucose,Whole Blood 277 mg/dL (75-99)
[2020-04-22 16:03] LABS: Hemoglobin A1C 10.1 % (4.0-6.0)
[2020-04-22] MEDS ORDERED: metFORMIN 850 MG TAB PO SCH (17:30)
[2020-04-22] MEDS ORDERED: PANTOPRAZOLE 40 MG TABLET PO SCH (21:00)
[2020-04-22] MEDS ORDERED: FAMOTIDINE 20 MG TAB PO SCH (21:00)
[2020-04-22] MEDS ORDERED: MONTELUKAST 10 MG TAB PO SCH (21:00)
[2020-04-22] MEDS ORDERED: MULTIVITAMINS, THERA 1 EACH TAB PO SCH (21:00)
[2020-04-22] MEDS ORDERED: atenoloL 25 MG TAB PO SCH (21:00)
[2020-04-23] MEDS ORDERED: ASPIRIN 81 MG PO SCH (09:00)
--- NOTE | 2020-04-23 10:00 | ECHOF ---
Referral Reason:fatigue MEASUREMENTS -------- HEIGHT: 182.9 cm WEIGHT: 102.1 kg BP: IVSd: 1.0 cm (0.6 - 1.1) LVIDd: 4.1 cm (3.9 - 5.3) LVPWd: 1.0 cm (0.6 - 1.1) IVSs: 1.3 cm LVIDs: 3.0 cm LVPWs: 1.6 cm RVIDd: 4.6 cm (< 3.3) Ao Diam: 3.6 cm (2.0 - 3.7) LA Diam: 3.5 cm (2.7 - 3.8) AV Cusp: 2.0 cm (1.5 - 2.6) EPSS: 1.2 cm MV E Miki: 0.46 m/s MV DecT: 141 ms MV A Miki: 0.98 m/s MV E/A Ratio: 0.47 AR PHT: 932 ms RAP: 15.00 mmHg RVSP: 29.19 mmHg MV EF SLOPE: 49.00 mm/s (70 - 150) MV EXCURSION: 10.38 mm (> 18.000) FINDINGS -------- This was a technically adequate study. The left ventricular size is normal. Left ventricular wall thickness is normal. Overall left vent ricular systolic function is low-normal with, an EF between 50 - 55 %. There is paradoxical/dysyner gic septal motion consistent with right ventricular volume overload and/or elevated right ventricular end-diastolic pressure. The right ventricle is severely enlarged. The left atrial size is normal. The right atrial size is normal. Aortic valve is trileaflet and is mildly thickened. There is mild aortic regurgitation. Mild mitral regurgitation is present. There is mild mitral valve prolapse. The tricuspid valve appears structurally normal. Mild tricuspid regurgitation present. Right vent ricular systolic pressure is normal at < 35 mmHg. Trace/mild (physiologic) pulmonic regurgitation. The aortic root size is normal. The inferior vena cava is mildly dilated. There is no pericardial effusion. CONCLUSIONS -------- 1. The left ventricular size is normal. 2. Left ventricular wall thickness is normal. 3. Overall left ventricular systolic function is low-normal with, an EF between 50 - 55 %. 4. There is paradoxical/dysynergic septal motion consistent with right ventricular volume overload an d/or elevated right ventricular end-diastolic pressure. 5. The right ventricle is severely enlarged. 6. Aortic valve is trileaflet and is mildly thickened. 7. There is mild aortic regurgitation. 8. Mild mitral regurgitation is present. 9. There is mild mitral valve prolapse. 10. Mild tricuspid regurgitation present. 11. Trace/mild (physiologic) pulmonic regurgitation. 12. The inferior vena cava is mildly dilated. 13. There is no pericardial effusion. CLOTH PRINTING INSPECTOR: Gladys Tony RDCS
== END 2020-04-22 16:09 | disposition home or self-care (01) ==
LOC: EC 15:18 → 3NCARDOBS 18:11
PROVIDERS: ADMIT Hospitalist; ATTEND Hospitalist
DX: E11.65 Type 2 diabetes mellitus with hyperglycemia (principal); E11.36 Type 2 diabetes mellitus with diabetic cataract; R06.09 Other forms of dyspnea; R06.02 Shortness of breath; R07.9 Chest pain, unspecified; R00.2 Palpitations; I25.10 Atherosclerotic heart disease of native coronary artery without angina pectoris; I10 Essential (primary) hypertension; K21.9 Gastro-esophageal reflux disease without esophagitis; D47.2 Monoclonal gammopathy; K59.00 Constipation, unspecified; M10.9 Gout, unspecified; E86.0 Dehydration; E78.5 Hyperlipidemia, unspecified; I38 Endocarditis, valve unspecified; I44.0 Atrioventricular block, first degree; I44.4 Left anterior fascicular block; L71.9 Rosacea, unspecified; Z79.899 Other long term (current) drug therapy; Z79.82 Long term (current) use of aspirin; Z88.5 Allergy status to narcotic agent; Z85.46 Personal history of malignant neoplasm of prostate; Z87.891 Personal history of nicotine dependence; Z90.79 Acquired absence of other genital organ(s); Z80.1 Family history of malignant neoplasm of trachea, bronchus and lung; Z80.8 Family history of malignant neoplasm of other organs or systems; Z80.42 Family history of malignant neoplasm of prostate
CPT/HCPCS: 96372; 96374; 96361; 99285; 36415; 93005; 93306; 80053; 80048; 82330; 82140; 83605; 83735; 84484; 85025; 85610; 85730; 83036; 71046; G0378 ×2; J1644

== ENCOUNTER → 2020-09-21 | Outpatient (CLI) | payer MEDICARE ==
[2020-09-21 14:57] LABS: Basophils # (A) 0.04 X 10*3/uL (0.00-0.10); Basophils % (A) 0.6 %; Eosinophils # (A) 0.32 X 10*3/uL (0.04-0.35); Eosinophils % (A) 4.8 %; HCT 42.8 % (39.6-50.0); HGB 14.9 g/dL (13.0-17.0); Lymphocytes # (A) 1.72 X 10*3/uL (0.90-5.00); Lymphocytes % (A) 25.8 %; MCH 31.9 pg (27.0-32.0); MCHC 34.8 g/dL (32.0-37.0); MCV 91.6 fL (80.0-97.0); Mean Platelet Volume 10.8 fL (9.5-12.2); Monocytes # (A) 0.65 X 10*3/uL (0.20-1.00); Monocytes % (A) 9.7 %; Neutrophils # (A) 3.92 X 10*3/uL (1.80-7.70); Neutrophils % (A) 58.8 %; Platelet Count 182 X 10*3/uL (140-440); RBC 4.67 X 10*6/uL (4.40-5.60); RDW 13.5 % (11.5-14.5); WBC 6.67 X 10*3/uL (4.50-10.00)
[2020-09-21 19:52] LABS: ALT 29 U/L (10-49); AST 27 U/L (14-35); Albumin/Globulin Ratio 2.26 (1.60-3.17); Alkaline Phosphatase 69 U/L (41-126); BUN/Creat Ratio 20.83 Ratio (12.00-20.00); Calcium 8.7 mg/dL (8.7-10.3); Carbon Dioxide 29.7 mmol/L (21.6-31.8); Chloride 103 mmol/L (96-109); Chol/HDL Ratio 2.67; Cholesterol 80 mg/dL (0-200); Globulin 1.9 g/dL (1.6-3.3); Glucose 134 mg/dL (70-110); LDL Cholesterol,Calculated 36.2 mg/dL (0.0-131.0); Non-African American GFR(CKD) 55.2 (60.0-200.0); Potassium 3.5 mmol/L (3.5-5.5); Prostate Specific Antigen <0.1 ng/mL (0.0-6.5); Sodium 141 mmol/L (135-145); Total Protein 6.2 g/dL (6.2-8.2)
== END | disposition home or self-care (01) ==
LOC: LABWHC1 09:51
PROVIDERS: ATTEND Internal Medicine Endocrinology, Diabetes & Metabolism
DX: Z00.00 Encounter for general adult medical examination without abnormal findings (principal); E11.65 Type 2 diabetes mellitus with hyperglycemia; E78.5 Hyperlipidemia, unspecified; I10 Essential (primary) hypertension
CPT/HCPCS: 36415; 80053; 80061; 82043; 82570; 83036; 84153; 84439; 84443; 85025

== ENCOUNTER → 2021-07-19 | Outpatient (CLI) | payer MEDICARE ==
[2021-07-19 14:57] LABS: ALT 24 U/L (10-49); AST 24 U/L (14-35); African American GFR (CKD) 62.1 (60.0-200.0); Albumin 4.4 g/dL (3.8-4.9); Albumin/Globulin Ratio 1.92 (1.60-3.17); Alkaline Phosphatase 78 U/L (41-126); BUN/Creat Ratio 20.08 Ratio (12.00-20.00); Blood Urea Nitrogen 24.7 mg/dL (9.0-27.0); Calcium 9.6 mg/dL (8.7-10.3); Carbon Dioxide 23.2 mmol/L (20.0-27.5); Chloride 106 mmol/L (96-109); Chol/HDL Ratio 2.29 Ratio; Globulin 2.3 g/dL (1.6-3.3); Glucose 122 mg/dL (70-110); LDL Cholesterol,Calculated 35.3 mg/dL (0.0-131.0); Non-African American GFR(CKD) 53.6 (60.0-200.0); Potassium 4.5 mmol/L (3.5-5.5); Sodium 142 mmol/L (135-145); Total Protein 6.8 g/dL (6.2-8.2); VLDL Calculation 13.28 mg/dL (5.00-40.00)
== END | disposition home or self-care (01) ==
LOC: LABWHC1 09:10
PROVIDERS: ATTEND Internal Medicine Endocrinology, Diabetes & Metabolism
DX: E11.9 Type 2 diabetes mellitus without complications (principal)
CPT/HCPCS: 36415; 80053; 80061; 82043; 82570; 83036; 84443

== ENCOUNTER → 2022-05-09 | Outpatient (CLI) | payer MEDICARE ==
[2022-05-09 15:45] LABS: ALT 23 U/L (10-49); AST 23 U/L (14-35); African American GFR (CKD) 57.7 (60.0-200.0); Albumin 4.5 g/dL (3.8-4.9); Alkaline Phosphatase 83 U/L (41-126); BUN/Creat Ratio 15.62 Ratio (12.00-20.00); Blood Urea Nitrogen 20.3 mg/dL (9.0-27.0); Calcium 9.7 mg/dL (8.7-10.3); Carbon Dioxide 25.7 mmol/L (20.0-27.5); Chloride 104 mmol/L (96-109); Chol/HDL Ratio 2.36 Ratio; Globulin 2.5 g/dL (1.6-3.3); Glucose 130 mg/dL (70-110); LDL Cholesterol,Calculated 29.4 mg/dL (0.0-131.0); Non-African American GFR(CKD) 49.8 (60.0-200.0); Potassium 4.7 mmol/L (3.5-5.5); Sodium 142 mmol/L (135-145)
== END | disposition home or self-care (01) ==
LOC: LABWHC1 09:16
PROVIDERS: ATTEND Internal Medicine Endocrinology, Diabetes & Metabolism
DX: E11.9 Type 2 diabetes mellitus without complications (principal)
CPT/HCPCS: 36415; 80053; 80061; 82043; 82570; 83036; 84443

== ENCOUNTER → 2022-06-28 | Outpatient (CLI) | payer MEDICARE ==
[2022-06-30 00:10] LABS: T4, Free (Free Thyroxine) 1.39 ng/dL (0.800-1.800)
== END | disposition home or self-care (01) ==
LOC: LABWHC1 12:32
PROVIDERS: ATTEND Internal Medicine
DX: E03.9 Hypothyroidism, unspecified (principal)
CPT/HCPCS: 36415; 84439; 84481

== ENCOUNTER → 2022-09-27 | Outpatient (CLI) | payer MEDICARE ==
[2022-09-27 16:25] LABS: Basophils % (A) 0 %; Eosinophils # (A) 0.3 k/uL (0-0.7); Eosinophils % (A) 4 %; HCT 46.6 % (39.0-53.0); HGB 15.8 gm/dL (13.0-17.5); Lymphocytes # (A) 1.9 k/uL (1.0-4.8); Lymphocytes % (A) 26 %; MCHC 33.8 g/dL (31.0-37.0); MCV 94.5 fL (80.0-100.0); Monocytes # (A) 0.5 k/uL (0-1.0); Monocytes % (A) 7 %; Neutrophils # (A) 4.3 k/uL (1.3-7.7); Neutrophils % (A) 59 %; Platelet Count 180 k/uL (150-450); RBC 4.93 m/uL (4.30-5.90); RDW 13.5 % (11.5-15.5); WBC 7.3 k/uL (3.8-10.6)
[2022-09-27 17:21] LABS: Erythrocyte Sedimentation Rate 3 mm/hr (0-15)
[2022-09-28 02:45] LABS: African American GFR (CKD) 57.8 (60.0-200.0); Albumin 4.5 g/dL (3.8-4.9); Albumin/Globulin Ratio 2.04 (1.60-3.17); Anion Gap 11.2 mmol/L (10.00-18.00); BUN/Creat Ratio 18.53 Ratio (12.00-20.00); Blood Urea Nitrogen 23.9 mg/dL (9.0-27.0); Carbon Dioxide 25.5 mmol/L (20.0-27.5); Globulin 2.2 g/dL (1.6-3.3); Non-African American GFR(CKD) 49.9 (60.0-200.0); Potassium 5.3 mmol/L (3.5-5.5); T4, Free (Free Thyroxine) 1.3 ng/dL (0.800-1.800); Total Bilirubin 0.6 mg/dL (0.30-1.20); Total Protein 6.7 g/dL (6.2-8.2)
== END | disposition home or self-care (01) ==
LOC: LABWHC1 14:51
PROVIDERS: ATTEND Internal Medicine
DX: E03.9 Hypothyroidism, unspecified (principal); R53.1 Weakness; R53.83 Other fatigue
CPT/HCPCS: 36415; 80053; 82306; 82533; 82607; 83036; 84439; 84443; 85025; 85652

== ENCOUNTER → 2022-11-11 | Outpatient (CLI) | payer MEDICARE ==
[2022-11-11 16:51] LABS: ALT 29 U/L (10-49); AST 25 U/L (14-35); African American GFR (CKD) 57.3 (60.0-200.0); Albumin 4.5 g/dL (3.8-4.9); Albumin/Globulin Ratio 2.05 (1.60-3.17); Alkaline Phosphatase 78 U/L (41-126); BUN/Creat Ratio 15.77 Ratio (12.00-20.00); Blood Urea Nitrogen 20.5 mg/dL (9.0-27.0); Calcium 9.7 mg/dL (8.7-10.3); Carbon Dioxide 25.3 mmol/L (20.0-27.5); Chloride 103 mmol/L (96-109); Globulin 2.2 g/dL (1.6-3.3); Glucose 134 mg/dL (70-110); Non-African American GFR(CKD) 49.4 (60.0-200.0); Potassium 4.5 mmol/L (3.5-5.5); Sodium 141 mmol/L (135-145); Total Protein 6.7 g/dL (6.2-8.2); VLDL Calculation 17.42 mg/dL (5.00-40.00)
== END | disposition home or self-care (01) ==
LOC: LABWHC1 08:49
PROVIDERS: ATTEND Internal Medicine Endocrinology, Diabetes & Metabolism
DX: E11.65 Type 2 diabetes mellitus with hyperglycemia (principal)
CPT/HCPCS: 36415; 80053; 80061; 82043; 82570; 83036; 84443

== ENCOUNTER → 2023-08-10 | Outpatient (CLI) | payer MEDICARE ==
[2023-08-10 16:21] LABS: ALT 27 U/L (10-49); AST 26 U/L (14-35); Albumin 4.5 g/dL (3.8-4.9); Albumin/Globulin Ratio 1.96 Ratio (1.60-3.17); Alkaline Phosphatase 85 U/L (41-126); BUN/Creat Ratio 18.33 Ratio (12.00-20.00); Chloride 105 mmol/L (96-109); Chol/HDL Ratio 2.18 Ratio; Globulin 2.3 g/dL (1.6-3.3); Glucose 139 mg/dL (70-110); LDL Cholesterol,Calculated 31.5 mg/dL (0.0-131.0); Potassium 4.6 mmol/L (3.5-5.5); Sodium 142 mmol/L (135-145); Total Bilirubin 0.8 mg/dL (0.3-1.2); Total Protein 6.8 g/dL (6.2-8.2); VLDL Calculation 16.74 mg/dL (5.00-40.00)
[2023-08-10 20:59] LABS: Urine Creatinine 94.5 mg/dL (39.0-259.0)
== END | disposition home or self-care (01) ==
LOC: LABWHC1 09:16
PROVIDERS: ATTEND Internal Medicine Endocrinology, Diabetes & Metabolism
DX: E11.9 Type 2 diabetes mellitus without complications (principal)
CPT/HCPCS: 36415; 80053; 80061; 82043; 82570; 83036; 84443

== ENCOUNTER → 2023-09-18 | Outpatient (CLI) | payer MEDICARE ==
[2023-09-18 16:36] LABS: ALT 28 U/L (10-49); AST 25 U/L (14-35); Albumin 4.5 g/dL (3.8-4.9); Albumin/Globulin Ratio 1.96 Ratio (1.60-3.17); Alkaline Phosphatase 81 U/L (41-126); BUN/Creat Ratio 19.08 Ratio (12.00-20.00); Blood Urea Nitrogen 22.9 mg/dL (9.0-27.0); Calcium 10.1 mg/dL (8.7-10.3); Carbon Dioxide 24.5 mmol/L (21.6-31.8); Chloride 105 mmol/L (96-109); Chol/HDL Ratio 2.18 Ratio; Globulin 2.3 g/dL (1.6-3.3); Glucose 138 mg/dL (70-110); LDL Cholesterol,Calculated 28.9 mg/dL (0.0-131.0); Potassium 4.4 mmol/L (3.5-5.5); Sodium 142 mmol/L (135-145); T4, Free (Free Thyroxine) 1.35 ng/dL (0.80-1.80); Total Bilirubin 0.9 mg/dL (0.3-1.2); Total Protein 6.8 g/dL (6.2-8.2)
[2023-09-18 16:38] LABS: Prostate Specific Antigen <0.01 ng/mL (0.000-6.500)
[2023-09-18 17:06] LABS: Basophils # (A) 0.06 X 10*3/uL (0.00-0.10); Basophils % (A) 0.9 %; Eosinophils # (A) 0.31 X 10*3/uL (0.04-0.35); Eosinophils % (A) 4.4 %; HCT 46.7 % (39.6-50.0); Lymphocytes # (A) 1.84 X 10*3/uL (0.90-5.00); Lymphocytes % (A) 26.2 %; MCH 31.9 pg (27.0-32.0); MCHC 34.3 g/dL (32.0-37.0); Mean Platelet Volume 10.7 FL (9.5-12.2); Monocytes # (A) 0.63 X 10*3/uL (0.20-1.00); NRBC Per 100 WBC 0 X 10*3/uL (0.00-0.01); Neutrophils # (A) 4.13 X 10*3/uL (1.80-7.70); Neutrophils % (A) 58.9 %; Platelet Count 184 X 10*3/uL (140-440); RBC 5.02 X 10*6/uL (4.40-5.60); RDW 13.7 % (11.5-14.5); WBC 7.01 X 10*3/uL (4.50-10.00)
== END | disposition home or self-care (01) ==
LOC: LABWHC1 09:40
PROVIDERS: ATTEND Internal Medicine
DX: I10 Essential (primary) hypertension (principal); E78.5 Hyperlipidemia, unspecified; R73.03 Prediabetes
CPT/HCPCS: 36415; 80053; 80061; 83036; 84153; 84439; 84443; 85025

== ENCOUNTER 2024-04-01 17:00 | Emergency (ER) | payer MEDICARE ==
[2024-04-01 17:08] VITALS: RESP 16; TEMP 97.4
--- NOTE | 2024-04-01 17:31 | ED ---
General Adult HPI - General Source: patient, RN notes reviewed Mode of arrival: ambulatory Limitations: no limitations <Joyce Graff - Last Filed: 04/01/24 17:30> <Rosemarie Edwards - Last Filed: 04/02/24 16:06> - General Chief complaint: Back Pain/Injury Stated complaint: Back Pain Time Seen by Provider: 04/01/24 17:18 - History of Present Illness Initial comments: Quick [id number] male presents emergency department chief complaint of left-sided midline pain and thoracic pain over the past few days. States the pain has been moving over the left side of his back. Patient denies shortness of breath, chest pain, heart palpitations, abdominal pain, cough, runny nose, congestion. Denies history of MT or CVA. (Joyce Graff) 88-year-old male presents emergency department reporting left-sided pleuritic chest pain. States that it has been going on since yesterday morning. States that every time he takes a deep breath he has pain in his left posterior thoracic region. States that it is also painful to move. He denies any injuries. No history of DVT or PE. No calf pain or feeling. Denies any history of cardiac disease. No associated shortness of breath, chest pain, p alpitations. Denies abdominal pain. No changes in his bowel or bladder habits. Has had a mild cough. Nothing productive. No other alleviating, precipitating modifying factors (Rosemarie Edwards) - Related Data Home Medications Medication Instructions Recorded Confirmed Cetirizine HCl [Zyrtec] 10 mg PO DAILY PRN 10/10/13 04/21/20 Multivitamin [Men's Multi-Vitamin] 1 tab PO HS 10/10/13 04/21/20 Pantoprazole Sodium [Protonix] 40 mg PO HS 10/10/13 04/21/20 allopurinoL [Zyloprim] 300 mg PO DAILY 06/19/17 04/21/20 Atorvastatin [Lipitor] 40 mg PO DAILY 04/10/18 04/21/20 Montelukast Sodium [Singulair] 10 mg PO HS 04/10/18 04/21/20 Aspirin EC [Ecotrin Low Dose] 162 mg PO DAILY 04/21/20 04/21/20 Chlorthalidone 25 mg PO DAILY 04/21/20 04/21/20 Fish Oil(Unknown Dose) 1 cap PO DAILY 04/21/20 04/21/20 Triamcinolone 0.025% Cream 1 applic TOPICAL DAILY PRN 04/21/20 04/21/20 [Kenalog 0.025% Cream] atenoloL 25 mg PO HS 04/21/20 04/21/20 Previous Rx's Medication Instructions Recorded lisinopriL [Zestril] 10 mg PO DAILY #30 tab 04/22/20 metFORMIN HCL [Glucophage] 850 mg PO TID-W/MEALS #90 tab 04/22/20 Albuterol Inhaler [Ventolin Hfa 1 puff INHALATION QID #8 gm 04/01/24 Inhaler] Doxycycline Hyclate 100 mg PO BID 1 Days #14 tab 04/01/24 predniSONE [Deltasone] 20 mg PO BID #10 tab 04/01/24 Allergies Allergy/AdvReac Type Severity Reaction Status Date / Time meperidine HCl [From Demerol] AdvReac SEVERE Verified 04/01/24 17:05 SWEATING, LOW BLOOD PRESSURE Review of Systems ROS Other: All systems not noted in ROS Statement are negative. <Joyce Graff - Last Filed: 04/01/24 17:30> ROS Other: All systems not noted in ROS Statement are negative. <Rosemarie Edwards - Last Filed: 04/02/24 16:06> ROS Statement: Those systems with pertinent positive or pertinent negative responses have been documented in the HPI. Past Medical History Past Medical History: Cancer, GERD/Reflux, Hypertension Additional Past Medical History / Comment(s): MITRAL VALVE, GOUT, PROSTATE CANCER, CONSTIPATION, PALPITATIONS History of Any Multi-Drug Resistant Organisms: None Reported Past Surgical History: Hernia Repair, Orthopedic Surgery, Prostate Surgery Additional Past Surgical History / Comment(s): BENIGN TUMORS REMOVED ANKLE, PRE CANCEROUS LESION REMOVED, PARTIAL AMPUTATION OF 3RD TOE RT FOOT, CATARACTS MANJEET,GANGLION CYST REMOVED FROM LT KNEE, LT INGUINAL & UMBILICAL HERNIA SX,DENTAL IMPLANTS (1)TOP, (2) BOTTOM, ROBOTIC PROSTATECTOMY [email or web address] COLONOSCOPY, recent bronch. 2017 Past Anesthesia/Blood Transfusion Reactions: No Reported Reaction, Family History of Problems w/ Anesthesia Additional Past Anesthesia/Blood Transfusion Reaction / Comment(s): NAUSEA Past Psychological History: No Psychological Hx Reported Smoking Status: Never smoker Past Alcohol Use History: Rare Past Drug Use History: None Reported - Past Family History Mother Family Medical History: Cancer Brother(s) Family Medical History: Cancer Additional Family Medical History / Comment(s): PROSTATE Sister(s) Family Medical History: Cancer Additional Family Medical History / Comment(s): 1 W/ LUNG CA, 1 W/ THROAT CA <StiLeni garciaoe - Last Filed: 04/01/24 17:30> General Exam Limitations: no limitations <StielerJoyce - Last Filed: 04/01/24 17:30> General appearance: alert, in no apparent distress Head exam: Present: atraumatic, normocephalic, normal inspection Eye exam: Present: normal appearance, PERRL, EOMI. Absent: scleral icterus, conjunctival injection, periorbital swelling ENT exam: Present: normal exam, mucous membranes moist Neck exam: Present: normal inspection. Absent: tenderness, meningismus, lymphadenopathy Respiratory exam: Present: normal lung sounds bilaterally, chest wall tenderness (To the left posterior chest wall. No rash identified). Absent: respiratory distress, wheezes, rales, rhonchi, stridor Cardiovascular Exam: Present: regular rate, normal rhythm, normal heart sounds. Absent: systolic murmur, diastolic murmur, rubs, gallop, clicks GI/Abdominal exam: Present: soft, normal bowel sounds. Absent: distended, tenderness, guarding, rebound, rigid Extremities exam: Present: normal inspection, full ROM, normal capillary refill. Absent: tenderness, pedal edema, joint swelling, calf tenderness Back exam: Present: normal inspection Neurological exam: Present: alert, oriented X3, CN II-XII intact Psychiatric exam: Present: normal affect, normal mood Skin exam: Present: warm, dry, intact, normal color. Absent: rash <Rosemarie Edwards - Last Filed: 04/02/24 16:06> - General Exam Comments Initial Comments: Visual Physical Exam Vital signs reviewed General: Well-appearing, nontoxic, no acute distress. Head: Normocephalic, atraumatic Eyes: PERRLA, EOMI ENT: Airway patent Chest: Nonlabored breathing Skin: No visual rash, normal skin tone Neuro: Alert and oriented 3 Musculoskeletal: No gross abnormalities (Stieler,Joyce) Course Vital Signs 04/01/24 04/01/24 17:05 21:35 Temperature 97.4 F L Pulse Rate 83 78 Respiratory 16 16 Rate Blood Pressure 154/99 133/93 O2 Sat by Pulse 93 L 96 Oximetry Medical Decision Making <Joyce Graff - Last Filed: 04/01/24 17:30> - Lab Data Result diagrams: 04/01/24 18:01 04/01/24 18:01 <Rosemarie Edwards Manuel - Last Filed: 04/02/24 16:06> - Medical Decision Making I completed the quick note portion of this chart signed Joyce Graff PA-C (Joyce Graff) Was pt. sent in by a medical professional or institution (DAMIEN Salcedo, SANIPRACTIC PHYSICIAN, urgent care, hospital, or [facility]...) When possible be specific @ -No Did you speak to anyone other than the patient for history (EMS, parent, family, police, friend...)? What history was obtained from this source @ -No Did you review nursing and triage notes (agree or disagree)? Why? @ -I reviewed and agree with nursing and triage notes Were old charts reviewed (outside hosp., previous admission, EMS record, old E KG, old radiological studies, urgent care reports/EKG's, [facility] records)? Report findings @ -No old charts were reviewed Differential Diagnosis (chest pain, altered mental status, abdominal pain women, abdominal pain men, vaginal bleeding, weakness, fever, dyspnea, syncope, headache, dizziness, GI bleed, back pain, seizure, CVA, palpatations, mental health, musculoskeletal)? @ -Differential Pain: Stable Angina, Unstable Angina, STEMI, NSTEMI Aortic Dissection, Pneumothorax, Musculoskeletal, Esophageal Spasm GERD, Cholecystitis, Pancreatitis, Zoster, this is not meant to be an all-inclusive list. EKG interpreted by me (3pts min.). @ -See above X-rays interpreted by me (1pt min.). @ -Yes and demonstrates possible pneumonia CT interpreted by me (1pt min.). @ -None done U/S interpreted by me (1pt. min.). @ -None done What testing was considered but not performed or refused? (CT, X-rays, U/S, labs)? Why? @ -None What meds were considered but not given or refused? Why? @ -None Did you discuss the management of the patient with other professionals (professionals i.e. , PA, SANIPRACTIC PHYSICIAN, lab, RT, psych nurse, social service director, drum puller, teacher, aviation ordnance officer, community case manager)? Give summary @ -No Was smoking cessation discussed for >3mins.? @ -No Was critical care preformed (if so, how long)? @ -No Were there social determinants of health that impacted care today? How? (Homelessness, low income, unemployed, alcoholism, drug addiction, transportation, low edu. Level, literacy, decrease access to med. care, shelter, rehab)? @ -No Was there de-escalation of care discussed even if they declined (Discuss DNR or withdrawal of care, Hospice)? DNR status @ -No What co-morbidities impacted this encounter? (DM, HTN, Smoking, COPD, CAD, Cancer, CVA, ARF, Chemo, Hep., AIDS, mental health diagnosis, sleep apnea, morbid obesity)? @ -None Was patient admitted / discharged? Hospital course, mention meds given and route, prescriptions, significant lab abnormalities, going to OR and other pertinent info. @ -Upon arrival patient seen and evaluated in room 30. Thorough history and p hysical exam was performed. IV access was established. Laboratory studies are conducted. X-ray was performed. Results were discussed with patient. He is agreeable to the diagnosis of pleurisy. May be due to developing pneumonia. Patient will be placed on antibiotics, steroids and an inhaler. Instructed follow-up with his doctor and return for any new or worsening symptoms Undiagnosed new problem with uncertain prognosis? @ -No Drug Therapy requiring intensive monitoring for toxicity (Heparin, Nitro, Insulin, Cardizem)? @ -No Were any procedures done? @ -No Diagnosis/symptom? @ -Acute left-sided chest wall pain, acute pleurisy, possible early community- acquired pneumonia Acute, or Chronic, or Acute on Chronic? @ -Acute Uncomplicated (without systemic symptoms) or Complicated (systemic symptoms)? @Complicated Side effects of treatment? @ -No Exacerbation, Progression, or Severe Exacerbation? @ -No Poses a threat to life or bodily function? How? (Chest pain, USA, MT, pneumonia, PE, COPD, DKA, ARF, appy, cholecystitis, CVA, Diverticulitis, Homicidal, Suicidal, threat to staff... and all critical care pts) @ -No (GraceRosemarie Manuel) - Lab Data Lab Results 04/01/24 04/01/24 04/01/24 Range/Units 18:01 18:01 18:01 WBC 10.3 (3.8-10.6) k/uL RBC 4.88 (4.30-5.90) m/uL Hgb 15.5 (13.0-17.5) gm/dL Hct 47.5 (39.0-53.0) % MCV 97.4 (80.0-100.0) fL MCH 31.8 (25.0-35.0) pg MCHC 32.6 (31.0-37.0) g/dL RDW 13.3 (11.5-15.5) % Plt Count 185 (150-450) k/uL MPV 7.6 Neutrophils % 72 % Lymphocytes % 16 % Monocytes % 8 % Eosinophils % 1 % Basophils % 0 % Neutrophils # 7.4 (1.3-7.7) k/uL Lymphocytes # 1.7 (1.0-4.8) k/uL Monocytes # 0.8 (0-1.0) k/uL Eosinophils # 0.1 (0-0.7) k/uL Basophils # 0.0 (0-0.2) k/uL PT 10.2 (10.0-12.5) sec INR 0.9 (<1.2) APTT 25.8 (22.0-30.0) sec D-Dimer (<0.60) mg/L FEU Sodium 139 (137-145) mmol/L Potassium 4.2 (3.5-5.1) mmol/L Chloride 105 (98-107) mmol/L Carbon Dioxide 25 (22-30) mmol/L Anion Gap 9 mmol/L BUN 24 H (9-20) mg/dL Creatinine 1.02 (0.66-1.25) mg/dL Est GFR (CKD-EPI)AfAm 76 (>60 ml/min/1.73 sqM) Est GFR (CKD-EPI)NonAf 66 (>60 ml/min/1.73 sqM) Glucose 118 H (74-99) mg/dL Calcium 9.3 (8.4-10.2) mg/dL Total Bilirubin 1.1 (0.2-1.3) mg/dL AST 41 (17-59) U/L ALT 42 (4-49) U/L Alkaline Phosphatase 73 (38-126) U/L Total Protein 6.7 (6.3-8.2) g/dL Albumin 4.1 (3.5-5.0) g/dL Amylase 50 (30-110) U/L Lipase 82 (23-300) U/L Urine Color Urine Appearance (Clear) Urine pH (5.0-8.0) Ur Specific [place] (1.001-1.035) Urine Protein (Negative) Urine Glucose (UA) (Negative) Urine Ketones (Negative) Urine Blood (Negative) Urine Nitrite (Negative) Urine Bilirubin (Negative) Urine Urobilinogen (<2.0) mg/dL Ur Leukocyte Esterase (Negative) 04/01/24 04/01/24 Range/Units 18:01 19:21 WBC (3.8-10.6) k/uL RBC (4.30-5.90) m/uL Hgb (13.0-17.5) gm/dL Hct (39.0-53.0) % MCV (80.0-100.0) fL MCH (25.0-35.0) pg MCHC (31.0-37.0) g/dL RDW (11.5-15.5) % Plt Count (150-450) k/uL MPV Neutrophils % % Lymphocytes % % Monocytes % % Eosinophils % % Basophils % % Neutrophils # (1.3-7.7) k/uL Lymphocytes # (1.0-4.8) k/uL Monocytes # (0-1.0) k/uL Eosinophils # (0-0.7) k/uL Basophils # (0-0.2) k/uL PT (10.0-12.5) sec INR (<1.2) APTT (22.0-30.0) sec D-Dimer 0.67 H (<0.60) mg/L FEU Sodium (137-145) mmol/L Potassium (3.5-5.1) mmol/L Chloride (98-107) mmol/L Carbon Dioxide (22-30) mmol/L Anion Gap mmol/L BUN (9-20) mg/dL Creatinine (0.66-1.25) mg/dL Est GFR (CKD-EPI)AfAm (>60 ml/min/1.73 sqM) Est GFR (CKD-EPI)NonAf (>60 ml/min/1.73 sqM) Glucose (74-99) mg/dL Calcium (8.4-10.2) mg/dL Total Bilirubin (0.2-1.3) mg/dL AST (17-59) U/L ALT (4-49) U/L Alkaline Phosphatase (38-126) U/L Total Protein (6.3-8.2) g/dL Albumin (3.5-5.0) g/dL Amylase (30-110) U/L Lipase (23-300) U/L Urine Color Light Yellow Urine Appearance Clear (Clear) Urine pH 5.5 (5.0-8.0) Ur Specific [place] 1.020 (1.001-1.035) Urine Protein Trace H (Negative) Urine Glucose (UA) Negative (Negative) Urine Ketones Negative (Negative) Urine Blood Negative (Negative) Urine Nitrite Negative (Negative) Urine Bilirubin Negative (Negative) Urine Urobilinogen <2.0 (<2.0) mg/dL Ur Leukocyte Esterase Negative (Negative) Disposition <Joyce Graff - Last Filed: 04/01/24 17:30> Is patient prescribed a controlled substance at d/c from ED?: No Time of Disposition: 21:08 <Rosemarie Edwards - Last Filed: 04/02/24 16:06> Clinical Impression: Chest pain Disposition: HOME SELF-CARE Condition: Stable Instructions (If sedation given, give patient instructions): Thoracic Pain (ED) Additional Instructions: Please use the inhaler every 4 hours. Take the antibiotics as they are dire cted. Follow-up with your doctor and return for any new or worsening symptoms Prescriptions: predniSONE [Deltasone] 20 mg PO BID #10 tab Doxycycline Hyclate 100 mg PO BID 1 Days #14 tab Albuterol Inhaler [Ventolin Hfa Inhaler] 1 puff INHALATION QID #8 gm Referrals: Mari Tarango MD [Primary Care Provider] - 1-2 days
--- NOTE | 2024-04-01 18:23 | XR ---
EXAMINATION TYPE: XR ribs LT w pa chest xray, 5 views DATE OF EXAM: 04/01/2024 Comparison: 04/21/2020 Clinical History: 88-year-old male pain Findings: Heart upper limits of normal in size. There is patchy left basilar opacity. No pleural effusion or pn eumothorax. No displaced left rib fracture seen. Impression: 1. Patchy left basilar opacity. Correlate for pneumonia. 2. No displaced left rib fracture seen. [facility], , 04/01/2024 6:21 PM
[2024-04-01 18:37] LABS: Basophils % (A) 0 %; Eosinophils # (A) 0.1 k/uL (0-0.7); Eosinophils % (A) 1 %; HCT 47.5 % (39.0-53.0); HGB 15.5 gm/dL (13.0-17.5); Lymphocytes # (A) 1.7 k/uL (1.0-4.8); Lymphocytes % (A) 16 %; MCH 31.8 pg (25.0-35.0); MCHC 32.6 g/dL (31.0-37.0); MCV 97.4 fL (80.0-100.0); Mean Platelet Volume 7.6; Monocytes # (A) 0.8 k/uL (0-1.0); Monocytes % (A) 8 %; Neutrophils # (A) 7.4 k/uL (1.3-7.7); Neutrophils % (A) 72 %; Platelet Count 185 k/uL (150-450); RBC 4.88 m/uL (4.30-5.90); RDW 13.3 % (11.5-15.5); WBC 10.3 k/uL (3.8-10.6)
[2024-04-01 18:50] LABS: ALT 42 U/L (4-49); AST 41 U/L (17-59); African American GFR (CKD) 76 (>60 ml/min/1.73 sqM); Albumin 4.1 g/dL (3.5-5.0); Alkaline Phosphatase 73 U/L (38-126); Amylase 50 U/L (30-110); Anion Gap 9 mmol/L; Blood Urea Nitrogen 24 mg/dL (9-20); Calcium 9.3 mg/dL (8.4-10.2); Carbon Dioxide 25 mmol/L (22-30); Chloride 105 mmol/L (98-107); Glucose 118 mg/dL (74-99); Lipase 82 U/L (23-300); Non-African American GFR(CKD) 66 (>60 ml/min/1.73 sqM); Potassium 4.2 mmol/L (3.5-5.1); Sodium 139 mmol/L (137-145); Total Bilirubin 1.1 mg/dL (0.2-1.3); Total Protein 6.7 g/dL (6.3-8.2)
[2024-04-01 18:58] LABS: INR 0.9 (<1.2); Partial Thromboplastin Time 25.8 sec (22.0-30.0); Prothrombin Time 10.2 sec (10.0-12.5)
[2024-04-01 19:49] LABS: Appearance,Urine Clear (Clear); Bilirubin,Urine Negative (Negative); Blood,Urine Negative (Negative); Color,Urine Light Yellow; Glucose,Urine (UA) Negative (Negative); Ketones,Urine Negative (Negative); Leukocyte Esterase,Urine Negative (Negative); Nitrite,Urine Negative (Negative); PH, Urine 5.5 (5.0-8.0); Protein,Urine Trace (Negative); Urobilinogen,Urine <2.0 mg/dL (<2.0)
[2024-04-01] MEDS: predniSONE 20 MG TAB PO STA (21:31)
[2024-04-01] MEDS: DOXYCYCLINE 100 MG CAP PO STA (21:31)
[2024-04-01 21:51] VITALS: BP 133/93; PULSE 78
== END 2024-04-01 21:35 | disposition home or self-care (01) ==
LOC: EC 17:00
CPT/HCPCS: 36415; 80053; 81003; 82150; 83690; 85025; 85379; 85610; 85730; 99283

== ENCOUNTER → 2024-04-10 | Outpatient (CLI) | payer MEDICARE ==
[2024-04-10 15:16] LABS: African American GFR (CKD) 59 (>60 ml/min/1.73 sqM); Blood Urea Nitrogen 30 mg/dL (9-20); Non-African American GFR(CKD) 51 (>60 ml/min/1.73 sqM)
--- NOTE | 2024-04-10 16:12 | CT ---
CTA CHEST EXAMINATION TYPE: CT angio chest DATE OF EXAM: 04/10/2024 INDICATION: R/O PE. CT DLP: 780 mGycm, Automated exposure control for dose reduction was used. CONTRAST: Patient injected with 80ml mL of Isovue 370. COMPARISON: 03/04/2019 TECHNIQUE: CT of the chest is performed on a spiral scan at 2 mm thick sections. Study is performed with intravenous contrast timed for evaluation for pulmonary embolism. This will limit additional po rtions of the evaluation. 3-D MIP images reconstructed by the technologist are reviewed on the compu ter in the coronal and sagittal planes. FINDINGS: No persistent filling defects are evident to suggest an acute pulmonary embolism. No mediastinal or hilar adenopathy enlarged by CT criteria is evident. A few scattered small lymph n odes are present. The ascending aorta diameter at the level of the main pulmonary artery is 4.4 cm. The main pulmonary artery diameter at the bifurcation is 2.9 cm. There is a triangular density along the left pleural margin within the lingula measuring 5.2 x 3.1 cm . Additional workup for neoplasm is recommended. Limited CT sections were through the upper abdomen. Several small dependent gallstones are present. There are multiple circumscribed lytic areas within the ribs scapula bodies. Workup is recommended. M ultiple myeloma and metastasis could be considered. IMPRESSION: 1. No acute pulmonary embolism. 2. Masslike area within the anterior lateral lingula suspicious for neoplasm. Additional workup recom mended. 3. Multiple circumscribed lytic areas within the osseous structures. Multiple myeloma should be inclu ded within the differential. 4. Ascending thoracic aortic aneurysm measuring 4.4 cm. 4. Cholelithiasis. [facility], Workstation: [facility], 04/10/2024 4:10 PM
== END | disposition home or self-care (01) ==
LOC: RADCTMAIN 14:38
PROVIDERS: ATTEND Internal Medicine
CPT/HCPCS: 36415; 71275; 82565; 84520

== ENCOUNTER → 2024-04-19 | Outpatient (CLI) | payer MEDICARE ==
--- NOTE | 2024-04-22 07:57 | PE ---
EXAMINATION TYPE: PET CT fusion skull to thigh DATE OF EXAM: 04/19/2024 CLINICAL INDICATION:Male, 88 years old with history of R91.8 LUNG MASS; TECHNIQUE: Following the intravenous administration of 11.8 mCi of F-18 FDG, whole body images are performed from the skull base to the midthigh. Images are reviewed on the computer in the coronal, a xial, and sagittal planes. Reconstructed rotating images are created on independent workstation and reviewed on the computer. A non-contrast CT is performed in conjunction with the PET scan. Glucose level 112 mg/dL CT DLP: 855.12 mGycm, Automated exposure control for dose reduction was used. COMPARISON: CT 04/10/2024, 03/04/2019, 08/15/2017, 11/06/2013, PET/CT None, MRI: None, Nuclear medicine b one scan 09/02/2013 FINDINGS: Mediastinal SUV mean is 2.6. Hepatic parenchyma SUV mean is 3.6. SKULL BASE AND NECK: No suspicious radiotracer activity. CHEST, MEDIASTINUM, AND HILAR REGION: Lingular wedge shaped consolidation measuring 3.1 x 2.8 cm redemonstrated. Demonstrate a maximum SUV of 3.2 which is just above background. Appears decreased in size from prior exam and had more central lucencies on prior exam. ABDOMEN AND PELVIS: Exophytic right lower pole renal 2.9 cm lesion with peripheral hyperdensity. Demonstrates a maximum S UV of 4.6 which is just above background. MUSCULOSKELETAL STRUCTURES: Diffuse innumerable small osseous lytic lesions redemonstrated without FDG uptake. OTHER CT: Paranasal sinus disease. Bilateral carotid bulb calcifications. Atherosclerotic calcificati on of the aorta and its branches. Moderate to severe coronary artery calcifications. Cholelithiasis. Prostate gland is surgically absent versus atrophic. Fat filled right inguinal hernia. Few scattered sigmoid diverticula without evidence for acute diverticulosis. Ascending thoracic aortic aneurysm nelson suring up to 4.3 cm redemonstrated. Multilevel degenerative disc disease of the visualized spine. Benton ateral shoulder arthropathy. Bilateral SI joint arthropathy. Diffuse bone demineralization. IMPRESSION: 1. Decreased size of wedge-shaped consolidation within the lingula with FDG activity just above back ground. Favored to present resolving infectious/inflammatory process. Follow-up CT chest in 3 months is recommended. 2. Exophytic 2.9 cm right renal lesion with FDG activity just above background. Demonstrates some pe ripheral hyperintensity. May represent a proteinaceous/hemorrhagic cyst with neoplasm not excluded. F urther evaluation with MR abdomen with IV contrast (renal mass protocol) is recommended. 3. Redemonstration of diffuse osseous lytic lesions from prior exams. No corresponding FDG activity. No prior radiotracer uptake on nuclear medicine scan 09/02/2013. Etiologies include multiple myeloma versus metastasis versus other etiologies. Correlate clinically. [facility], , 04/22/2024 7:55 AM
== END | disposition home or self-care (01) ==
LOC: RADPETMAIN 10:27
PROVIDERS: ATTEND Internal Medicine
DX: R91.8 Other nonspecific abnormal finding of lung field (principal); M12.812 Other specific arthropathies, not elsewhere classified, left shoulder; M12.811 Other specific arthropathies, not elsewhere classified, right shoulder; I71.20 Thoracic aortic aneurysm, without rupture, unspecified; K57.30 Diverticulosis of large intestine without perforation or abscess without bleeding; K40.90 Unilateral inguinal hernia, without obstruction or gangrene, not specified as recurrent; K80.20 Calculus of gallbladder without cholecystitis without obstruction
CPT/HCPCS: 78815; A9552

== ENCOUNTER → 2024-04-23 | Outpatient (CLI) | payer MEDICARE ==
[2024-04-23 18:45] LABS: HCT 43.6 % (39.6-50.0); HGB 14.8 g/dL (13.0-17.0); MCH 31.8 pg (27.0-32.0); MCHC 33.9 g/dL (32.0-37.0); MCV 93.6 FL (80.0-97.0); Mean Platelet Volume 10.6 FL (9.5-12.2); NRBC Per 100 WBC 0 X 10*3/uL (0.00-0.01); Platelet Count 191 X 10*3/uL (140-440); RBC 4.66 X 10*6/uL (4.40-5.60); RDW 14.1 % (11.5-14.5); WBC 8.77 X 10*3/uL (4.50-10.00)
[2024-04-23 20:53] LABS: Blood Urea Nitrogen 22.3 mg/dL (9.0-27.0); Carbon Dioxide 24.2 mmol/L (21.6-31.8); Chloride 105 mmol/L (96-109); Potassium 4.4 mmol/L (3.5-5.5); Sodium 141 mmol/L (135-145)
== END | disposition home or self-care (01) ==
LOC: LABPAT 12:30
PROVIDERS: ATTEND Internal Medicine Interventional Cardiology
DX: Z01.812 Encounter for preprocedural laboratory examination (principal); I25.10 Atherosclerotic heart disease of native coronary artery without angina pectoris; R06.02 Shortness of breath
CPT/HCPCS: 36415; 80051; 82565; 84520; 85027

== ENCOUNTER 2024-04-30 08:46 | Day surgery (SDC) | payer MEDICARE ==
[2024-04-25 16:23] VITALS: BMI 28.0
[~2024-04-30 08:46] MED LIST changes: -ADENOSINE 90 MG in SODIUM CHLORIDE 0.9% 60 ML IVP ONE; -ALPRAZolam 0.5 MG TAB PO PRN; -ASPIRIN 325 MG TAB PO STA; -ATORVASTATIN 80 MG TAB PO STA; +HEPARIN SODIUM,PORCINE (1 ML) 2,500 UNIT in SODIUM CHLORIDE 0.9% 250 ML IRRIGATION PRN; +HEPARIN SODIUM,PORCINE 10,000 UNIT in SODIUM CHLORIDE 0.9% 1,000 ML IRRIGATION PRN; -HYDROmorphone 1 MG/ML 1 ML SYRINGE IVP STA; -IOPAMIDOL-370 125ML BTL INJ ONE; -LIDOCAINE 1% INJ 10MG/ML (20 ML MDV) SQ ONE; -MIDAZOLAM 2 MG/2 ML VIAL IV ONE; -RX INFO: IV CONTRAST WAS GIVEN 1 EACH MISC MISCELLANE PRN; -SODIUM CHLORIDE 0.9% 1,000 ML IV ONE; -SODIUM CHLORIDE 0.9% 1,000 ML IV SCH; -SODIUM CHLORIDE 0.9% 1,000 ML in EMPTY BAG 1 BAG IV ONE; -hydrALAZINE HCL 20 MG/ML 1 ML VIAL IVP STA
[2024-04-30] MEDS: SODIUM CHLORIDE 0.9% 1,000 ML in EMPTY BAG 1 BAG IV ONE (09:20)
[2024-04-30] MEDS: IV FLUID CONTINUATION 1,000 ML IV ONE ×2 (09:20→15:10)
[2024-04-30 09:32] LABS: Glucose,Whole Blood 135 mg/dL (70-110)
[2024-04-30] MEDS: ASPIRIN 325 MG TAB PO STA (09:45)
[2024-04-30] MEDS: ATORVASTATIN 80 MG TAB PO STA (09:46)
[2024-04-30] MEDS: MIDAZOLAM 2 MG/2 ML VIAL IVP ONE (12:17)
[2024-04-30] MEDS: LIDOCAINE 1% INJ 10MG/ML (20 ML MDV) SQ ONE (12:18)
[2024-04-30] MEDS: VERAPAMIL SYRINGE (5 MG/10 ML) INTRAARTER ONE (12:20)
[2024-04-30] MEDS: HEPARIN SODIUM 1,000 UN/ML (10ML VL) IVP ONE (12:21)
[2024-04-30] MEDS: TICAGRELOR 90 MG TAB PO ONE (12:43)
[2024-04-30] MEDS: NITROGLYCERIN 1000MCG/10ML SYRINGE INTRACORON ONE (13:41)
[2024-04-30] MEDS: IOPAMIDOL-370 200ML BTL INJ ONE (13:44)
[2024-04-30] MEDS ORDERED: LORATADINE 10 MG TAB PO PRN (13:53)
[2024-04-30] MEDS ORDERED: ALBUTEROL NEBULIZED 2.5 MG/3 ML INHALATION PRN (13:53)
[2024-04-30] MEDS ORDERED: MAG HYDROX/AL HYDROX/SIMETH 30 ML CUP PO PRN (13:54)
[2024-04-30] MEDS ORDERED: RX INFO: IV CONTRAST WAS GIVEN 1 EACH MISC MISCELLANE PRN (13:54)
[2024-04-30] MEDS ORDERED: ATROPINE SULFATE 0.1 MG/ML 10ML SYRINGE IV PRN (13:54)
[2024-04-30] MEDS ORDERED: ZOLPIDEM 5 MG TAB PO PRN (13:54)
[2024-04-30] MEDS: SODIUM CHLORIDE 0.9% 1,000 ML in EMPTY BAG 1 BAG IV SCH (16:00)
[2024-04-30 17:37] LABS: Glucose,Whole Blood 159 mg/dL (70-110)
[2024-04-30 19:59] LABS: Glucose,Whole Blood 159 mg/dL (70-110)
--- NOTE | 2024-04-30 21:03 | P.PCN ---
Date of Procedure: 04/30/24 Operative Findings: Cardiac catheterization and percutaneous coronary intervention Performing physician Reynaldo Morgan MD Procedure performed 1. Selective right and left coronary angiogram 2. Successful stenting of the mid and distal RCA using 4.0 x 28 and 4.0 x 12 mm Xience SAYDA with an excellent angiographic results and reduction of stenosis from 80% to 0% Adjunctive use of Doppler wire/IFR 3. Ultrasound-guided access of the right radial artery Indication Symptomatic 88-year-old gentleman who continues to have symptoms of shortness of breath and chest discomfort concerning for angina and he is known to have CAD with prior heart catheterization showed intermediate to severe disease involving the RCA Approach Right radial artery Complication None Level of sedation Moderate with sedation length of 120 minutes Procedure description After obtaining informed consent the patient was brought to the cardiac [employer]. The right radial artery was cannulated using micropuncture technique under ultrasound guidance the micropuncture wire passed easily then I placed a 6 Gambian 11 cm sheath at the right radial artery and subsequently I gave the patient 2 mg of verapamil intra-arterial and initially 5000's of heparin intravenous with continuous ACT monitoring. Selective right and left coronary a ngiogram performed using JR4 and JL 4 catheters. Left heart catheterization was not performed. Subsequently we decided to intervene on the RCA. Anticoagulation was continued using heparin with continuous ACT monitoring. Before the intervention we decided to do an IFR of the RCA. After zeroing without the wire and equalizing between the Doppler wire and guiding catheter which was JR4 guiding catheter the RCA was engaged and subsequently wired using the Doppler wire with the wire was advanced distal to the lesion in the mid to distal RCA. Then the guide was disengaged from the ostial RCA. We did an IFR and that came to be ischemic at 0.89. At that point I decided to go ahead and do PCI of the RCA. Anticoagulation continued using heparin with continuous ACT monitoring. Subsequently we will have a better anchoring of the guide because the RCA was extremely calcified and tortuous I decided to wire the RCA using another wire and that was advanced to wire. Subsequently balloon angioplasty using initially 3 mm and subsequently 3.5 mm was performed with difficulties of doing the PTCA balloon of the mid to distal and mid RCA. Attempting advancing 4.0 x 28 mm stent was unsuccessful in spite of having 2 wires and in spite of using a guide liner. Subsequently during the procedure everything was came out. So we decided to go ahead again and engage the RCA using at this time hockey- stick guiding catheter. With that I was able to wire the RCA using this time a whisper wire and subsequently a horacio wire but that was an Ironman. With that we were able to straighten the tortuosity of the RCA. I was able to advance 4.0 x 20 mm stent where the stent was positioned under fluoroscopy guidance and deployed under fluoroscopy guidance. There was a lesion distal to the stent in the distal RCA which we decided to cover using 4.0 x 12 mm stent. After that the area of overlap between the 2 stents was dilated using the stent balloon and final angiogram showed excellent angiographic results and the patient tolerated the procedure very well Selective coronary angiogram The RCA Large-caliber vessel and the dominant vessel with intermediate to severe lesion involving the RCA and the mid to distal portion was not flow-limiting by Doppler wire The left main Appeared to have mild disease only The LCx Large-caliber vessel nondominant vessel with mild to moderate disease only The LAD Large-caliber vessel with only mild disease was noted. Conclusion Intermediate to severe disease involving the mid RCA documented to be flow- limiting by Doppler wire Successful PCI of the RCA as described above Postprocedure management Dual antiplatelet therapy using aspirin and Brilinta for at least 6 months Aggressive cholesterol control Follow-up with the patient
[2024-04-30] MEDS: hydrALAZINE HCL 20 MG/ML 1 ML VIAL IVP STA (21:24)
[2024-04-30] MEDS: TICAGRELOR 90 MG TAB PO SCH (21:27)
[2024-04-30] MEDS: MONTELUKAST 10 MG TAB PO SCH (21:27)
[2024-04-30] MEDS: PANTOPRAZOLE 40 MG TABLET PO SCH (21:27)
[2024-04-30] MEDS: ATORVASTATIN 40 MG TAB PO SCH (21:27)
[2024-04-30 23:27] VITALS: TEMP 97.5
[2024-05-01 03:54] VITALS: RESP 16
[2024-05-01] MEDS: ALPRAZolam 0.5 MG TAB PO PRN (03:55)
[2024-05-01 06:15] LABS: Glucose,Whole Blood 131 mg/dL (70-110)
[2024-05-01] MEDS: LEVOTHYROXINE 25 MCG TAB PO SCH (06:24)
[2024-05-01] MEDS: ASPIRIN 81 MG PO SCH (08:56)
[2024-05-01] MEDS: allopurinoL 300 MG TAB PO SCH (08:56)
[2024-05-01 08:58] VITALS: BP 139/96; PULSE 95
[2024-05-01] MEDS ORDERED: ASPIRIN 81 MG PO SCH (09:00)
== END 2024-05-01 09:26 | disposition home or self-care (01) ==
LOC: CATHCVL 08:46 → 3SCARD 16:04 → CATHCVL 05-01 09:26
PROVIDERS: ATTEND Internal Medicine Interventional Cardiology
DX: I25.10 Atherosclerotic heart disease of native coronary artery without angina pectoris (principal); I10 Essential (primary) hypertension; E78.5 Hyperlipidemia, unspecified; E11.9 Type 2 diabetes mellitus without complications; I71.12 Aneurysm of the aortic arch, ruptured; Z79.82 Long term (current) use of aspirin; Z79.899 Other long term (current) drug therapy; Z88.8 Allergy status to other drugs, medicaments and biological substances
CPT/HCPCS: 93454; 93799; 99152; 99153; C9600; C1887 ×4; C1769 ×5; C1894; C1725 ×4; C1874 ×2; J2250; J2003; J1644; Q9967; J2305

== ENCOUNTER → 2024-08-22 | Outpatient (CLI) | payer MEDICARE ==
--- NOTE | 2024-08-22 13:17 | CT ---
EXAMINATION TYPE: CT chest wo con DATE OF EXAM: 08/22/2024 COMPARISON: CTA chest dated 04/10/2024 CLINICAL INDICATION: Male, 89 years old with history of R91.8 ABNORMAL FINDING OF LUNG FIELD; PH[facility], ab normal finding lung field TECHNIQUE: CT scan of the thorax is performed without IV contrast. CT DLP: 465.[address] CTDI: mGy Automated exposure control for dose reduction was used. FINDINGS: There has been a marked interval reduction in the lingular mass from 5.7 x 1.3 cm. Currently the mass appears to more likely represent a focal area of round atelectasis. Given the significant reduction over the past 5 months, the prior masslike density was likely an inflammatory process such as pneumon ia.. There are no new nodules or masslike densities within the lungs. There is no pleural effusion or pneu mothorax. 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 There is no m ediastinal, hilar or axillary adenopathy. Limited scanning through the upper abdomen reveals stable cholelithiasis. As noted on the prior study there are multiple scattered lytic lesions in the thoracic spine sternum and multiple ribs raising the question of multiple myeloma or metastatic disease and clinical correla tion is recommended. IMPRESSION: 1. Marked reduction in the left lingular mass as described above. Findings likely indicate a resolvin g pneumonia although treated neoplasm is not excluded and clinical correlation is recommended. 2. Multiple lytic lesions throughout the bony skeleton is described above. Multiple myeloma versus m etastatic disease. 3. 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 4. Cholelithiasis [facility], , 08/22/2024 1:15 PM
== END | disposition home or self-care (01) ==
LOC: RADCTMAIN 12:47
PROVIDERS: ATTEND Internal Medicine
DX: R91.8 Other nonspecific abnormal finding of lung field (principal); K80.20 Calculus of gallbladder without cholecystitis without obstruction
CPT/HCPCS: 71250

== ENCOUNTER → 2024-10-15 | Outpatient (CLI) | payer MEDICARE ==
[2024-10-15 13:26] LABS: Influenza A Not Detected (Not Detectd); Influenza B Not Detected (Not Detectd); RSV Not Detected (Not Detectd)
[2024-10-15 15:13] LABS: Basophils # (A) 0.04 X 10*3/uL (0.00-0.10); Basophils % (A) 0.7 %; Eosinophils # (A) 0.21 X 10*3/uL (0.04-0.35); Eosinophils % (A) 3.9 %; HCT 42.6 % (39.6-50.0); HGB 14.2 g/dL (13.0-17.0); Lymphocytes # (A) 0.76 X 10*3/uL (0.90-5.00); MCH 31.8 pg (27.0-32.0); MCHC 33.3 g/dL (32.0-37.0); MCV 95.3 FL (80.0-97.0); Mean Platelet Volume 10.4 FL (9.5-12.2); Monocytes % (A) 12.9 %; NRBC Per 100 WBC 0 X 10*3/uL (0.00-0.01); Neutrophils % (A) 68.1 %; Platelet Count 173 X 10*3/uL (140-440); RBC 4.47 X 10*6/uL (4.40-5.60); RDW 14.1 % (11.5-14.5); WBC 5.43 X 10*3/uL (4.50-10.00)
[2024-10-15 15:24] LABS: ALT 27 U/L (10-49); AST 31 U/L (14-35); Albumin 4.2 g/dL (3.8-4.9); Albumin/Globulin Ratio 1.75 Ratio (1.60-3.17); Alkaline Phosphatase 77 U/L (41-126); Amylase 43 U/L (23-121); Blood Urea Nitrogen 18.6 mg/dL (9.0-27.0); Calcium 9.6 mg/dL (8.7-10.3); Carbon Dioxide 23.8 mmol/L (21.6-31.8); Chloride 105 mmol/L (96-109); Globulin 2.4 g/dL (1.6-3.3); Glucose 108 mg/dL (70-110); Lipase 29 U/L (14-60); Potassium 4.7 mmol/L (3.5-5.5); Sodium 142 mmol/L (135-145); T4, Free (Free Thyroxine) 1.21 ng/dL (0.80-1.80); Total Bilirubin 0.6 mg/dL (0.3-1.2); Total Protein 6.6 g/dL (6.2-8.2)
== END | disposition home or self-care (01) ==
LOC: LABWHC1 11:53
PROVIDERS: ATTEND Internal Medicine
DX: J06.9 Acute upper respiratory infection, unspecified (principal); R11.2 Nausea with vomiting, unspecified; R06.00 Dyspnea, unspecified; E11.9 Type 2 diabetes mellitus without complications; R53.1 Weakness
CPT/HCPCS: 36415; 80053; 82150; 82533; 83036; 83690; 84439; 84443; 85025; 87636

== ENCOUNTER 2024-10-23 16:54 | Emergency (ER) | payer MEDICARE ==
[2024-10-23 17:45] VITALS: PULSE 64
--- NOTE | 2024-10-23 18:19 | ED ---
General Adult HPI - General Source: patient, RN notes reviewed Mode of arrival: ambulatory Limitations: no limitations <Chris Nicolas - Last Filed: 10/23/24 18:17> <Joshua Ang - Last Filed: 10/23/24 20:55> - General Chief complaint: Skin/Abscess/Foreign Body Stated complaint: abd bruising on thinners Time Seen by Provider: 10/23/24 17:52 - History of Present Illness Initial comments: 89-year-old male presents emergency department with chief complaint of abdominal bruising. Patient states that he had recent COVID-19 states he was coughing a lot and developed some bruising in his abdomen which is steadily worsened. He states that he became concerned when other people noticed it and states he follo w-up with his PCP sent here for evaluation states there is a large lump in his abdomen that is tender with palpation and bruising extends around to his back. Denies any fevers chills chest pain shortness of breath no dysuria. Patient states he takes Brilinta. (Chris Nicolas) - Related Data Home Medications Medication Instructions Recorded Confirmed Cetirizine HCl [Zyrtec] 10 mg PO DAILY PRN 10/10/13 04/25/24 Multivitamin [Men's Multi-Vitamin] 1 tab PO HS 10/10/13 04/25/24 Pantoprazole Sodium [Protonix] 40 mg PO HS 10/10/13 04/30/24 allopurinoL [Zyloprim] 300 mg PO DAILY 06/19/17 04/30/24 Atorvastatin [Lipitor] 40 mg PO HS 04/10/18 04/30/24 Montelukast Sodium [Singulair] 10 mg PO HS 04/10/18 04/30/24 Aspirin EC [Ecotrin Low Dose] 162 mg PO DAILY 04/21/20 04/30/24 Fish Oil(Unknown Dose) 1 cap PO DAILY 04/21/20 04/25/24 Fish Oil(Unknown Dose) 1 dose PO QAM 04/25/24 04/25/24 Levothyroxine Sodium [Synthroid] 25 mcg PO QAM 04/25/24 04/30/24 Albuterol Inhaler [Ventolin Hfa 1 puff INHALATION QID PRN 04/30/24 04/30/24 Inhaler] Previous Rx's Medication Instructions Recorded Ticagrelor [Brilinta] 90 mg PO BID #180 tab 05/01/24 Allergies Allergy/AdvReac Type Severity Reaction Status Date / Time meperidine HCl [From Demerol] AdvReac SEVERE Verified 10/23/24 17:44 SWEATING, LOW BLOOD PRESSURE Review of Systems ROS Other: All systems not noted in ROS Statement are negative. <Chris Nicolas - Last Filed: 10/23/24 18:17> ROS Other: All systems not noted in ROS Statement are negative. <DomibeatriceJoshua - Last Filed: 10/23/24 20:55> ROS Statement: Those systems with pertinent positive or pertinent negative responses have been documented in the HPI. Past Medical History Past Medical History: Cancer, GERD/Reflux, Hypertension Additional Past Medical History / Comment(s): MITRAL VALVE, GOUT, PROSTATE CANCER, CONSTIPATION, PALPITATIONS History of Any Multi-Drug Resistant Organisms: None Reported Past Surgical History: Hernia Repair, Orthopedic Surgery, Prostate Surgery Additional Past Surgical History / Comment(s): BENIGN TUMORS REMOVED ANKLE, PRE CANCEROUS LESION REMOVED, PARTIAL AMPUTATION OF 3RD TOE RT FOOT, CATARACTS MANJEET,GANGLION CYST REMOVED FROM LT KNEE, LT INGUINAL & UMBILICAL HERNIA SX,DENTAL IMPLANTS (1)TOP, (2) BOTTOM, ROBOTIC PROSTATECTOMY 2009@ [facility] HOSP. COLONOSCOPY, recent bronch. 2017 Past Anesthesia/Blood Transfusion Reactions: No Reported Reaction, Family History of Problems w/ Anesthesia Additional Past Anesthesia/Blood Transfusion Reaction / Comment(s): NAUSEA Past Psychological History: No Psychological Hx Reported Smoking Status: Never smoker Past Alcohol Use History: Rare Past Drug Use History: None Reported - Past Family History Mother Family Medical History: Cancer Brother(s) Family Medical History: Cancer Additional Family Medical History / Comment(s): PROSTATE Sister(s) Family Medical History: Cancer Additional Family Medical History / Comment(s): 1 W/ LUNG CA, 1 W/ THROAT CA <Chris Nicolas - Last Filed: 10/23/24 18:17> General Exam Limitations: no limitations General appearance: alert, in no apparent distress Head exam: Present: atraumatic, normocephalic, normal inspection ENT exam: Present: normal exam, mucous membranes moist Neck exam: Present: normal inspection, full ROM. Absent: tenderness, menin gismus, lymphadenopathy Respiratory exam: Present: normal lung sounds bilaterally. Absent: respiratory distress, wheezes, rales, rhonchi, stridor Cardiovascular Exam: Present: regular rate, normal rhythm, normal heart sounds. Absent: systolic murmur, diastolic murmur, rubs, gallop, clicks GI/Abdominal exam: Present: soft, tenderness, normal bowel sounds, other (Large dark ecchymotic area significant mid abdomen wrapping around to the right flank region there is a centralized firm tender area). Absent: distended, guarding, rebound, rigid <Chris Nicolas M - Last Filed: 10/23/24 18:17> Course Vital Signs 10/23/24 17:32 Temperature 97.4 F L Pulse Rate 64 Respiratory 20 Rate Blood Pressure 176/82 O2 Sat by Pulse 96 Oximetry Medical Decision Making - Lab Data Result diagrams: 10/23/24 18:22 10/23/24 18:22 <Joshua Ang N - Last Filed: 10/23/24 20:55> - Medical Decision Making Was pt. sent in by a medical professional or institution (DAMIEN Salcedo, INSIDE SALES SUPERVISOR, urgent care, hospital, or half-way...) When possible be specific @ -No Did you speak to anyone other than the patient for history (EMS, parent, family, police, friend...)? What history was obtained from this source @ -No Did you review nursing and triage notes (agree or disagree)? Why? @ -I reviewed and agree with nursing and triage notes Were old charts reviewed (outside hosp., previous admission, EMS record, old EKG, old radiological studies, urgent care reports/EKG's, half-way records)? Report findings @ -No old charts were reviewed Differential Diagnosis abdominal wall hematoma, hemorrhagic shock, rib fracture EKG interpreted by me (3pts min.). @ -As above X-rays interpreted by me (1pt min.). @ -None done CT interpreted by me (1pt min.). @ -CT of the abdomen pelvis shows a intramuscular hematoma within the right rec tus. Appendix is mildly dilated without inflammatory change, no right lower quadrant pain. U/S interpreted by me (1pt. min.). @ -None done What testing was considered but not performed or refused? (CT, X-rays, U/S, labs)? Why? @ -None What meds were considered but not given or refused? Why? @ -None Did you discuss the management of the patient with other professionals (professionals i.e. , PA, INSIDE SALES SUPERVISOR, lab, RT, psych nurse, secondary social studies teacher, stereotyper helper, teacher, community service officer, case management social worker)? Give summary @ -No Was smoking cessation discussed for >3mins.? @ -No Was critical care preformed (if so, how long)? @ -No Were there social determinants of health that impacted care today? How? (Homelessness, low income, unemployed, alcoholism, drug addiction, transportation, low edu. Level, literacy, decrease access to med. care, [place] [facility], rehab)? @ -No Was there de-escalation of care discussed even if they declined (Discuss DNR or withdrawal of care, Hospice)? DNR status @ -No What co-morbidities impacted this encounter? (DM, HTN, Smoking, COPD, CAD, Cancer, CVA, ARF, Chemo, Hep., AIDS, mental health diagnosis, sleep apnea, morbid obesity)? @ -None Was patient admitted / discharged? Hospital course, mention meds given and route, prescriptions, significant lab abnormalities, going to OR and other pertinent info. @89-year-old male with abdominal wall bruising and swelling after coughing epis ode which occurred 3 days prior. Patient is on dual antiplatelet medication. He states that overall the bruising and pain is significantly improved, not worsening at all. He was instructed to come to the emergency department for evaluation. Hemoglobin is stable. CT shows anterior abdominal wall hematoma. Patient will continue to monitor this hematoma. He will apply ice. He will follow-up with his primary care provider. Patient reports this is generally getting better and hemoglobin today is normal, felt that observation with return parameters is appropriate. Undiagnosed new problem with uncertain prognosis? @ -No Drug Therapy requiring intensive monitoring for toxicity (Heparin, Nitro, Insulin, Cardizem)? @ -No Were any procedures done? @ -No Diagnosis/symptom? @ -[Abdominal wall hematoma Acute, or Chronic, or Acute on Chronic? @Acute Uncomplicated (without systemic symptoms) or Complicated (systemic symptoms)? @ -Default Side effects of treatment? @ -No Exacerbation, Progression, or Severe Exacerbation? @ -No Poses a threat to life or bodily function? How? (Chest pain, USA, AR, pneumonia, PE, COPD, DKA, ARF, appy, cholecystitis, CVA, Diverticulitis, Homicidal, Suic idal, threat to staff... and all critical care pts) @ -Low risk at this time (Joshua Ang) - Lab Data Lab Results 10/23/24 10/23/24 10/23/24 Range/Units 18:22 18:22 18:22 WBC 9.19 (4.50-10.00) 10*3/uL RBC 4.30 L (4.40-5.60) 10*6/uL Hgb 13.9 (13.0-17.0) g/dL Hct 39.7 (39.6-50.0) % MCV 92.3 (80.0-97.0) fL MCH 32.3 H (27.0-32.0) pg MCHC 35.0 (32.0-37.0) g/dL Plt Count 232 (140-440) 10*3/uL MPV 9.8 (9.5-12.2) fL Immature Gran % (Auto) 2.4 % Neutrophils % 79.2 % Lymphocytes % 12.0 % Monocytes % 6.2 % Eosinophils % 0.1 % Basophils % 0.1 % Immature Gran # 0.22 H (0.00-0.04) 10*3/uL Neutrophils # 7.28 (1.80-7.70) 10*3/uL Lymphocytes # 1.10 (0.90-5.00) 10*3/uL Monocytes # 0.57 (0.20-1.00) 10*3/uL Eosinophils # 0.01 L (0.04-0.35) 10*3/uL Basophils # 0.01 (0.00-0.10) 10*3/uL PT 11.1 (10.0-12.5) sec INR 1.0 (<1.2) APTT 20.0 L (22.0-30.0) sec Sodium 137 (137-145) mmol/L Potassium 4.6 (3.5-5.1) mmol/L Chloride 100 (98-107) mmol/L Carbon Dioxide 26 (22-30) mmol/L Anion Gap 11 mmol/L BUN 35 H (9-20) mg/dL Creatinine 1.15 (0.66-1.25) mg/dL Est GFR (CKD-EPI)AfAm 66 (>60 ml/min/1.73 sqM) Est GFR (CKD-EPI)NonAf 57 (>60 ml/min/1.73 sqM) Glucose 133 H (74-99) mg/dL Calcium 9.9 (8.4-10.2) mg/dL Total Bilirubin 0.6 (0.2-1.3) mg/dL AST 36 (17-59) U/L ALT 39 (4-49) U/L Alkaline Phosphatase 59 (38-126) U/L Total Protein 6.6 (6.3-8.2) g/dL Albumin 4.1 (3.5-5.0) g/dL Disposition <Chris Nicolas M - Last Filed: 10/23/24 18:17> Is patient prescribed a controlled substance at d/c from ED?: No Time of Disposition: 20:05 <Joshua Ang - Last Filed: 10/23/24 20:55> Clinical Impression: Abdominal wall hematoma Disposition: HOME SELF-CARE Condition: Good Instructions (If sedation given, give patient instructions): Hematoma (ED) Referrals: Mari Tarango MD [Primary Care Provider] - 1-2 days
[2024-10-23 18:25] LABS: Basophils # (A) 0.01 10*3/uL (0.00-0.10); Basophils % (A) 0.1 %; Eosinophils # (A) 0.01 10*3/uL (0.04-0.35); Eosinophils % (A) 0.1 %; HCT 39.7 % (39.6-50.0); HGB 13.9 g/dL (13.0-17.0); MCH 32.3 pg (27.0-32.0); MCV 92.3 fL (80.0-97.0); Mean Platelet Volume 9.8 fL (9.5-12.2); Monocytes # (A) 0.57 10*3/uL (0.20-1.00); Monocytes % (A) 6.2 %; Neutrophils # (A) 7.28 10*3/uL (1.80-7.70); Neutrophils % (A) 79.2 %; Platelet Count 232 10*3/uL (140-440); RDW 13.9 % (11.5-14.5); WBC 9.19 10*3/uL (4.50-10.00)
[2024-10-23 18:34] LABS: Prothrombin Time 11.1 sec (10.0-12.5)
[2024-10-23 18:35] LABS: ALT 39 U/L (4-49); AST 36 U/L (17-59); African American GFR (CKD) 66 (>60 ml/min/1.73 sqM); Albumin 4.1 g/dL (3.5-5.0); Alkaline Phosphatase 59 U/L (38-126); Anion Gap 11 mmol/L; Blood Urea Nitrogen 35 mg/dL (9-20); Calcium 9.9 mg/dL (8.4-10.2); Carbon Dioxide 26 mmol/L (22-30); Chloride 100 mmol/L (98-107); Glucose 133 mg/dL (74-99); Non-African American GFR(CKD) 57 (>60 ml/min/1.73 sqM); Potassium 4.6 mmol/L (3.5-5.1); Sodium 137 mmol/L (137-145); Total Bilirubin 0.6 mg/dL (0.2-1.3); Total Protein 6.6 g/dL (6.3-8.2)
--- NOTE | 2024-10-23 20:52 | CT ---
EXAMINATION TYPE: CT abdomen pelvis w con DATE OF EXAM: 10/23/2024 7:43 PM COMPARISON: Pet/CT 04/19/2024. CLINICAL INDICATION: Male, 89 years old with history of large hematoma pain; pt PCP sent for abd brui sing middle to RLQ, +thinners denies abd pain, recently had covid. TECHNIQUE: Axial CT abdomen pelvis w con;Sagittal and coronal reformats were created on a separate w orkstation. Contrast used:100ml mL of Isovue 300 with IV Contrast, (none if empty) Oral contrast used: without Oral Contrast (none if empty) CT DLP: 1431.8 mGycm, Automated exposure control for dose reduction was used. FINDINGS: LOWER CHEST: Unremarkable ABDOMEN LIVER: Unremarkable GALLBLADDER AND BILE DUCTS: Layering increased densities within the lumen consistent with gallstones are present. PANCREAS: Unremarkable. SPLEEN: Unremarkable. ADRENAL GLANDS: Unremarkable. KIDNEYS AND URETERS: No evidence of hydronephrosis or obstructing renal calculus. The ureters are unr emarkable. Left renal cortical cyst measuring 29 mm. No follow-up recommended. PELVIS BLADDER: No evidence for wall thickening or mass given limitations of exam. REPRODUCTIVE: Unremarkable. ABDOMEN & PELVIS STOMACH AND BOWEL: No evidence of bowel obstruction. Redundant colon with moderate to large amount of stool particularly the sigmoid colon. The appendix is normal. Appendicolith measuring 6 mm in the ne ar the base of the appendix. The appendix is fluid-filled and prominent measuring up to 8 mm. No sign ificant inflammation is seen around the appendix however. PERITONEUM/RETROPERITONEUM: No evidence of pneumoperitoneum or free fluid. VASCULATURE: No evidence of aortic aneurysm. MUSCULOSKELETAL: No acute osseous abnormalities. Moderate disc degeneration changes are present throu ghout the thoracolumbar spine. Scattered lucent lytic lesions seen throughout the osseous structures. LYMPH NODES: No gross evidence for lymphadenopathy. SOFT TISSUE/ABDOMINAL WALL: Fat-containing bilateral inguinal hernias right greater than left. Ventra l wall abdominal rectus sheath hematoma on the right measuring 5.1 x 2.1 x 6.4 cm. IMPRESSION: 1. Right rectus wall sheath hematoma measuring up to 5.1 x 2.1 x 6.4 cm. There is some higher densit y blood thorax within this lesion unclear if this is actively bleeding given phase of contrast on the CT contrast exam. Consider short-term follow-up in 12 to 24 hours. 2. No evidence for acute intra-abdominal process. 3. There is prominent in size of the appendix with fluid in the lumen with appendicolith measuring u p to 6 mm in the bases. There is no evidence of active inflammation at this time however findings con cerning for impending appendicitis. 4. Right renal cortical lesion remains present and not significantly changed from 04/19/2024. [facility], , 10/23/2024 8:50 PM
[2024-10-23 21:04] VITALS: BP 143/91; RESP 16; TEMP 97.6
== END 2024-10-23 21:03 | disposition home or self-care (01) ==
LOC: EC 16:54
DX: S30.1XXA Contusion of abdominal wall, initial encounter (principal); Z88.5 Allergy status to narcotic agent; Z79.02 Long term (current) use of antithrombotics/antiplatelets; X58.XXXA Exposure to other specified factors, initial encounter
CPT/HCPCS: 36415; 80053; 85025; 85610; 85730; 74177; 99283; Q9967

== ENCOUNTER → 2025-01-01 | Outpatient (CLI) | payer MEDICARE ==
[2025-01-01 16:01] LABS: Basophils # (A) 0.04 X 10*3/uL (0.00-0.10); Basophils % (A) 0.5 %; Eosinophils # (A) 0.31 X 10*3/uL (0.04-0.35); Eosinophils % (A) 4.1 %; HCT 42.4 % (39.6-50.0); HGB 14.3 g/dL (13.0-17.0); Immature Grans, Automated 0.40 %; Lymphocytes # (A) 1.73 X 10*3/uL (0.90-5.00); Lymphocytes % (A) 22.8 %; MCH 31.4 pg (27.0-32.0); MCHC 33.7 g/dL (32.0-37.0); MCV 93.0 FL (80.0-97.0); Monocytes # (A) 0.79 X 10*3/uL (0.20-1.00); Monocytes % (A) 10.4 %; NRBC Per 100 WBC 0 X 10*3/uL (0.00-0.01); Neutrophils # (A) 4.69 X 10*3/uL (1.80-7.70); Neutrophils % (A) 61.8 %; Platelet Count 198 X 10*3/uL (140-440); RBC 4.56 X 10*6/uL (4.40-5.60); RDW 13.4 % (11.5-14.5); WBC 7.59 X 10*3/uL (4.50-10.00)
[2025-01-01 16:25] LABS: Anion Gap 12.80 mmol/L (4.00-12.00); BUN/Creat Ratio 17.23 Ratio (12.00-20.00); Blood Urea Nitrogen 22.4 mg/dL (9.0-27.0); Carbon Dioxide 24.2 mmol/L (21.6-31.8); Chloride 104 mmol/L (96-109); Cholesterol 98.00 mg/dL (0.00-200.00); Glucose 144 mg/dL (70-110); HDL Cholesterol 36.80 mg/dL (40.00-60.00); LDL Cholesterol,Calculated 39.6 mg/dL (0.0-131.0); Potassium 4.4 mmol/L (3.5-5.5); Sodium 141 mmol/L (135-145); Triglycerides 108.00 mg/dL (0.00-149.00); VLDL Calculation 21.60 mg/dL (5.00-40.00)
[2025-01-01 16:26] LABS: ALT 22 U/L (10-49); AST 25 U/L (14-35); Albumin 4.2 g/dL (3.8-4.9); Albumin/Globulin Ratio 1.62 Ratio (1.60-3.17); Alkaline Phosphatase 86 U/L (41-126); Calcium 9.7 mg/dL (8.7-10.3); Globulin 2.6 g/dL (1.6-3.3); T4, Free (Free Thyroxine) 1.40 ng/dL (0.80-1.80); Total Protein 6.8 g/dL (6.2-8.2)
== END | disposition home or self-care (01) ==
LOC: LABWHC1 08:45
PROVIDERS: ATTEND Internal Medicine
DX: E78.5 Hyperlipidemia, unspecified (principal)
CPT/HCPCS: 36415; 80053; 80061; 82306; 83036; 84439; 84443; 85025